=== PATIENT | female | born 1980 | race Caucasian/White ===

== ENCOUNTER → 2021-11-08 02:15 | Outpatient (CLI) | payer OTHER, SELFPAY ==
[2021-11-08 20:34] LABS: SARS-CoV-2 RNA PCR Negative
== END ==
PROVIDERS: PCP Family Medicine; Visit Provider Family Medicine
DX: J02.9 Acute pharyngitis, unspecified (principal); Z20.822 Contact with and (suspected) exposure to COVID-19
CPT/HCPCS: C9803; U0003; U0005

== ENCOUNTER → 2021-11-15 02:55 | Outpatient (CLI) | payer OTHER, SELFPAY ==
[2021-11-15 20:55] LABS: SARS-CoV-2 RNA PCR Positive
== END ==
PROVIDERS: PCP Family Medicine; Visit Provider Family Medicine
DX: U07.1 COVID-19 (principal)
CPT/HCPCS: C9803; U0003; U0005

== ENCOUNTER 2023-07-19 09:52 | Outpatient (CLI) | payer OTHER, SELFPAY ==
[2023-07-19 10:11] LABS: Basophils Absolute Auto 0.1 K/mm3 (0.0-0.1); Basophils Percent Auto 0.8 % (0.2-1.2); Eosinophils Absolute Auto 0.4 K/mm3 (0-0.3); Eosinophils Percent Auto 6.4 % (0-4.4); Hematocrit 42.4 % (37.0-47.0); Immature Granulocyte Absolute 0.01 K/mm3 (0.00-0.031); Immature Granulocyte Percent A 0.2 % (0-0.5); Lymphocytes Absolute Auto 1.97 K/mm3 (0.9-3.2); Lymphocytes Percent Auto 32.1 % (18.3-44.2); Mean Corpuscular Hemoglobin 29.4 pg (26-34); Mean Corpuscular Volume 89.1 fl (80-100); Mean Platelet Volume 10.3 fl (7.4-10.4); Monocytes Absolute Auto 0.4 K/mm3 (0.1-0.6); Monocytes Percent Auto 6.9 % (2.6-8.5); Neutrophils Absolute Auto 3.3 K/mm3 (1.3-6.7); Neutrophils Percent Auto 53.6 % (45.5-73.1); Platelet Count Result 244 k/mm3 (150-375); Red Blood Count 4.76 M/mm3 (4.2-5.4); Red Cell Distribution Width 12.2 % (11.5-14.5); White Blood Count 6.1 K/mm3 (4.5-10.0)
== END 2023-07-19 09:53 | disposition home or self-care (01) ==
LOC: ANHLAB 09:54
PROVIDERS: PCP Family Medicine; Visit Provider Anesthesiology
DX: D25.9 Leiomyoma of uterus, unspecified (principal); Z01.818 Encounter for other preprocedural examination
CPT/HCPCS: 36415; 85025; 86850; 86900; 86901

== ENCOUNTER 2023-07-25 00:42 | Day surgery (SDC) | payer OTHER, SELFPAY ==
[2023-07-18 14:30] VITALS: BMI 31.4
--- NOTE | 2023-07-18 14:53 | PC.NURSE ---
Report to the Outpatient Waiting Room, entrance under the green pavilion located off [facility], at time _0600___on date _07/25/23__. Planned Procedure Time: _0730__. Time changes happen often and if your time is changed the preop area will call you the afternoon before. - You and your visitor will be asked to self-screen and do not enter if you have any COVID symptoms. - A mask is optional within the hospital at this time. Patients may have clear liquids (water, carbonated beverages, clear teas, apple juice) until 3 hours prior to surgery with a maximum of 20 ounces. - No food from midnight until time of surgery. Take the following medications with a SIP of water the morning of surgery: __NONE DO NOT STOP ANY OF YOUR OTHER PRESCRIPTION MEDICATIONS PRIOR TO SURGERY ?EXCEPT THE FOLLOWING Medications to discontinue per physician NONE Date to take last dose____NONE Please no make-up, nail [place], hairspray, perfume, deodorant, or body powder the day of surgery. No jewelry (including any body piercings) or valuables the day of surgery, leave them at home. Please take a shower or bath the night before, or the morning of, surgery with an antibacterial soap. Wear comfortable, loose fitting clothing. Children are encouraged to wear pajamas. - Jewelry must be removed prior to entering the operating room. Rings and piercings that are not removed may be cut off. - The hospital will not accept responsibility for valuables. - Please leave all valuables, including medications, at home the day of surgery. If you are going home after surgery, a licensed hyster driver must drive you home. - NO public transportation without another adult if you receive anesthesia. - We recommend that an adult stay with you for 24 hours following discharge. - We also recommend that you do not drive, make important decision, drink alcoholic beverages, or take any drugs that were not prescribed by your health care provider for at least 24 hours after your discharge time. Follow any additional instructions given to you from your surgeon. If you or anyone in your household have experienced Covid symptoms in the past week, please notify your surgeon or the nurse liaison at the phone number below for possible testing. Telephone instructions given to __JOSE__and asked if any additional questions and then verbalized understanding. Patient advised to call surgeon office or pre surgery nurse liaison [phone] if any additional questions.
--- NOTE | 2023-07-22 16:15 | PM.IMHP ---
H&P: HPI History of Present Illness Date/Time: 07/22/23 16:15 Chief Complaint: Pelvic pain/uterine fibroid/vaginal bleeding Narrative: 42-year-old female was delivered from the uterine fibroid robotic hysterectomy bilateral salpingectomy secondary to failed ablation pelvic pain enlarged uterus and continued bleeding. Risks and benefits of this procedure reviewed including not exclusive of , aspiration pneumonia, bleeding, transfusion, perforation injury to bowel, bladder, ureters, or other internal organs with need for laparotomy. She received the ACO[employer] handout entitled hysterectomy as well as the Rafi handout. She had all questions answered to her satisfaction. She asked to proceed [facility] Family History Family History Father Cerebrovascular accident Hypertension Malignant neoplasm of prostate Mother Hypertension Pituitary tumor Grandparent Acute myocardial infarction Cervical cancer Social History Social History Smoking packs per day: 0.75 Smoking cigarettes per day: 15.0 Years smoked: 20 Smoking pack-years: 15.00 Smoking status: Current some day smoker Tobacco type: cigarettes and e-cigarettes/vaping Alcohol intake: current Drinks per week: 2 Substance use: never Substance use type: does not use Lack of Transportation: No Lack of Food: Never True Current Housing: I Have Housing Concerned About Future Housing: No Difficulty Paying Gas/Electric Bills: No Difficulty Paying for Meds: No Currently Unemployed: No Education: Associate Degree Difficulty w/ Childcare or Family Care: No Living arrangements: with family Spiritual care concerns: No Meds Home Medications and Allergies Home Medications Medication Instructions Recorded Confirmed Type No Home Medications 07/18/23 07/18/23 History Allergies Allergy/AdvReac Type Severity Reaction Status Date / Time amoxicillin AdvReac Yeast Verified 07/18/23 15:09 Infection Exam Const: General: cooperative, healthy appearing and comfortable Orientation/consciousness: oriented to person, oriented to place and oriented to time HENMT: Head: normal to inspection Resp: Effort & Inspection: normal respiratory effort Cardio: Rate: regular rate Rhythm: regular rhythm Heart sounds: S1 normal heart sound present and S2 normal heart sound present GI: Inspection: normal to inspection : External Female Exam: normal external appearance Speculum Exam - Vagina: normal appearance of the vagina Speculum Exam - Cervix: normal appearance of the cervix Bimanual exam- vagina & uterus: enlarged Bimanual Exam- Adnexa, other: normal adnexae Assessment and Plan Assessment and plan (1) Enlarged uterus: Code(s): N85.2 - Hypertrophy of uterus Status: Acute (2) Pelvic pain: Code(s): R10.2 - Pelvic and perineal pain Status: Acute (3) Excessive vaginal bleeding: Code(s): N93.9 - Abnormal uterine and vaginal bleeding, unspecified Status: Acute Plan Robotic total vaginal hysterectomy and bilateral salpingectomy
[2023-07-25] VITALS (12 sets, daily range): BP systolic 106–166; BP diastolic 77–114; PULSE 54–100; RESP 12–18; TEMP 36.2–37; O2SAT 93–100
--- NOTE | 2023-07-25 06:47 | WPDHPUPDATE1 ---
History and Physical Update Update Date/Time: 07/25/23 06:47 History and Physical has been reviewed, including an updated exam of the patient. There are NO changes in the patient's condition. Risks, benefits, and alternatives have been discussed and questions answered. Patient agrees to proceed with procedure.
--- NOTE | 2023-07-25 06:58 | WPDHPUPDATE1 ---
History and Physical Update Update Date/Time: 07/25/23 06:58 History and Physical has been reviewed, including an updated exam of the patient. There are NO changes in the patient's condition. Risks, benefits, and alternatives have been discussed and questions answered. Patient agrees to proceed with procedure. patient did not have ablation
[2023-07-25] MEDS: ACETAMINOPHEN 500 MG TABLET 1000 MG PO (07:10)
[2023-07-25] MEDS: KETOROLAC 15 MG/ML VIAL (*BKC) IV PUSH (07:10)
[2023-07-25] MEDS: LACTATED RINGERS 1,000 ML 30 ML IV CONT ×2 (07:10→09:39)
[2023-07-25] MEDS: ceFAZolin 2 GM/D5W 50 ML 2 GM/50 ML BAG IVPB (07:26)
[2023-07-25] MEDS: SCOPOLAMINE 1.5 MG PATCH TRANSDERM (07:26)
--- NOTE | 2023-07-25 09:20 | P.OP_ITS ---
Procedure Note - Detailed Date of Procedure 07/25/23 Pre-op Diagnosis heavy bleeding, fibroids Post-op Diagnosis Same Procedure Performed Robotic total vaginal hysterectomy and bilateral salpingectomy Surgeon Alfredo Chaudhry MD Anesthesia General Indications this 42-year-old female with markedly enlarged cyst fibroids Findings normal-appearing ovaries and tubes markedly irregular consult and uterus 527g Description of Procedure patient was prepped draped in the normal sterile fashion placed in the dorsal lithotomy position. Under excellent general trach anesthesia weighted speculum placed posterior fornix vagina. Anterior lip of the cervix grasped with single- tooth tenaculum. Uterus sounded to 10cm. Serial dilatation with fragmented dilators performed followed by passes then under the 10 KENIA and the 3. Cold cup. Next the 16 [place] catheter was placed in the bladder and bladder drained of clear urine. The weighted speculum and single-tooth removed and the gloves were changed. A supraumbilical incision made the Veress needle passed in the. Abdomen filled with CO2 gas to 15mm Hg. The 8mm trocar advanced in the abdomen. Downside visualized no injury seen. Patient placed in Trendelenburg 20? right left lateral quadrant incision made 8mm trocars were then placed in each lower quadrant. Right upper quadrant incision made the 8mm trocar advanced under direct visualization injury attention was turned to the counseling department chair. The left round ligament grasped burned and cut. Anterior bladder flap was dissecting the peritoneum and reflecting the bladder caudally cervix uterus the opposite round ligament was clamped, burned, cut. The left fallopian tube was then sharply dissected away from the ovarian complex and left attached to the uterine complex this was repeated on the contralateral side remove the right tube. Uterus was markedly irregular with a large calcified fibroid uterus. The left utero-ovarian ligament was skeletonized clamping burning cutting and hugging uterine fibroid and cervix to until reaching the round ligament on the left. In like fashion the ovary on the right was conserved by clamping burning and cutting the utero-ovarian ligament ramus to the previously cut ligament. The cardinal broad ligaments were skeletonized clamping burning cutting ring is down the lateral edge of the uterus and cervix until the uterine vessels could be seen on left these were large and very tortuous there were individually clamped, burned, cut. In like fashion the cardinal broad ligaments on the right were serially skeletonized clamping burning cutting until the vessels could be seen on right these were read skeletonized clamping burning and cutting. Hemostasis was noted and a colpotomy incision made. There was a difficult part in removing this large fibroid uterus. It was cut piecemeal the uterus was noted to be markedly adherent with the fibroids and marked amount of calcification was noted. It was brought out in 4 pieces. Irrigation undertaken to clear. Blood loss estimated 25cc. The vagina closed with continuous running 0V lock from lateral edge to lateral edge back to the midline. Irrigation subcutaneous layer 1 last time and the robot undocked the gas removed from the abdomen incisions closed with 4 Monocryl and glue the patient went to recovery in satisfactory condition. All sponge, needle, instrument counts were correct. There were no immediate complications Estimated Blood Loss 25 Drains No Packing No Pathology Yes Complications No immediate complications Condition Stable Disposition PACU
[2023-07-25] MEDS: fentaNYL CITRATE INJ (*CRX) 100 MCG/2 ML VIAL 25 MCG IV PUSH ×4 (10:05→10:40)
[2023-07-25] MEDS: ONDANSETRON INJ 4 MG/2 ML VIAL IV PUSH (10:12)
[2023-07-25] MEDS: diphenhydrAMINE HCl INJ 50 MG/ML VIAL 25 MG IV PUSH (11:27)
--- NOTE | 2023-07-25 11:32 | PM.DS ---
DS: Admitting Diagnosis Discharge Date Admitting Diagnosis Pelvic pain/symptomatic uterine fibroids DS: Discharge Diagnosis Discharge Diagnosis (1) Excessive vaginal bleeding: Code(s): N93.9 - Abnormal uterine and vaginal bleeding, unspecified Status: Acute (2) Pelvic pain: Code(s): R10.2 - Pelvic and perineal pain Status: Acute (3) Enlarged uterus: Code(s): N85.2 - Hypertrophy of uterus Status: Acute DS: Summary Hospital Course Reason for hospitalization: Patient was admitted for robotic hysterectomy and bilateral salpingectomy on 07/25/2023. Hospital Course: Patient was admitted for robotic total vaginal hysterectomy bilateral salpingectomy on 07/25/2023. Her hospital course unremarkable. She remained afebrile. She was up, voiding without difficulty, ambulating, eating regular diet. Time Spent with Patient Time attestation: Total time spent providing and/or coordinating discharge services: Exam Const: General: cooperative, healthy appearing and comfortable Nutritional Appearance: average body habitus Orientation/consciousness: oriented to person, oriented to place and oriented to time HENMT: Head: normal to inspection Resp: Effort & Inspection: normal respiratory effort Cardio: Rate: regular rate Rhythm: regular rhythm Heart sounds: S1 normal heart sound present and S2 normal heart sound present GI: Inspection: normal to inspection and incision (Clean dry and intact) DS: Data Data Completed and Pending Pending studies at discharge: Pending at discharge 07/25/23 08:40 Surgical [PTH] Routine Discharge Plan Discharge Patient Disposition: Home, Self-Care Discharge Instructions: Remove the Scopolamine patch that was placed behind your left ear in 72 hours or less. Wash your hands after touching. Stand Alone Forms: General Discharge Instructions Follow-up/Referrals: Alfredo Larios MD [Physician] - Discharge Medications: New hydrocodone-acetaminophen 5-325 mg tablet 1 tablet PO Q4H PRN (Reason: pain) Qty: 30 0RF
--- NOTE | 2023-07-25 11:40 | PC.NURSE ---
Patient transferred to post room #289 via (stretcher ). Support person present. Oriented to unit, room, information board, rooming in, admission packet and security measures. Patient verbalizes understanding.
[2023-07-25] MEDS: DEXTROSE 5%/LACTATED RINGERS 1,000 ML 125 ML IV CONT (11:48)
[2023-07-25] MEDS: HYDROcodone/acetaminophen (*CRX) 10-325 MG TABLET 1 TAB PO ×4 (12:04→22:17)
[2023-07-25] MEDS: KETOROLAC 30 MG/ML VIAL (*BKC) IV PUSH ×2 (12:05→18:20)
[2023-07-25] MEDS: SIMETHICONE 80 MG TAB.CHEW PO ×3 (14:32→22:17)
[2023-07-25] MEDS: DOCUSATE SODIUM 100 MG CAPSULE PO (17:55)
[2023-07-25] MEDS: IBUPROFEN 600 MG TABLET PO (23:44)
[2023-07-26] MEDS: HYDROcodone/acetaminophen (*CRX) 10-325 MG TABLET 1 TAB PO ×3 (02:02→10:01)
[2023-07-26] MEDS: SIMETHICONE 80 MG TAB.CHEW PO ×2 (02:03→09:49)
[2023-07-26 04:00] VITALS: BP 101/54; PULSE 56; RESP 16; TEMP 36.8
[2023-07-26] MEDS: IBUPROFEN 600 MG TABLET PO (05:13)
[2023-07-26 05:24] LABS: Basophils Absolute Auto 0.1 K/mm3 (0.0-0.1); Basophils Percent Auto 0.3 % (0.2-1.2); Eosinophils Absolute Auto 0.1 K/mm3 (0-0.3); Eosinophils Percent Auto 0.5 % (0-4.4); Hemoglobin 11.9 g/dL (12.0-15.0); Immature Granulocyte Absolute 0.04 K/mm3 (0.00-0.031); Immature Granulocyte Percent A 0.3 % (0-0.5); Lymphocytes Absolute Auto 2.09 K/mm3 (0.9-3.2); Lymphocytes Percent Auto 14.6 % (18.3-44.2); Mean Corpuscular HGB Conc 33.1 g/dl (32-36); Mean Corpuscular Volume 90.7 fl (80-100); Mean Platelet Volume 10.6 fl (7.4-10.4); Monocytes Absolute Auto 0.7 K/mm3 (0.1-0.6); Monocytes Percent Auto 4.9 % (2.6-8.5); Neutrophils Absolute Auto 11.4 K/mm3 (1.3-6.7); Neutrophils Percent Auto 79.4 % (45.5-73.1); Platelet Count Result 235 k/mm3 (150-375); Red Blood Count 3.97 M/mm3 (4.2-5.4); Red Cell Distribution Width 12.7 % (11.5-14.5); White Blood Count 14.3 K/mm3 (4.5-10.0)
--- NOTE | 2023-07-26 07:47 | WPDANESPN ---
Anes - Prog Note Post-Op Date/Time: 07/26/23 07:47 Cardiovascular status: normal Respiratory status: normal Airway patency: baseline Mental status: baseline Post-Op hydration status: normal Vital Signs: Last Vital Signs Temp 36.8 C 07/26/23 04:00 Pulse 56 L 07/26/23 04:00 Resp 16 07/26/23 04:00 BP 101/54 L 07/26/23 04:00 Pulse Ox 100 07/25/23 14:48 O2 Del Method Room Air 07/25/23 19:21 O2 Flow Rate 6 07/25/23 10:25 Pain Score (VAS): 0 I/O: Intake & Output 07/25/23 07/25/23 07/26/23 15:59 23:59 07:59 Intake Total 500 1240 1740 Output Total 420 2000 1100 Balance 80 -760 640 Laboratory Tests 07/26/23 05:07 07/26/23 05:07 WBC 14.3 H RBC 3.97 L Hgb 11.9 L Hct 36.0 L MCV 90.7 MCH 30.0 MCHC 33.1 RDW 12.7 Plt Count 235 MPV 10.6 H Immature Gran % (Auto) 0.3 Neut % (Auto) 79.4 H Lymph % (Auto) 14.6 L [place] % (Auto) 4.9 Eos % (Auto) 0.5 Baso % (Auto) 0.3 Lymph # (Auto) 2.09 [place] # (Auto) 0.7 H Eos # (Auto) 0.1 Baso # (Auto) 0.1 Abs Immat Gran (auto) 0.04 H Absolute Neuts (auto) 11.4 H Absolute Nucleated RBC 0.0 Nucleated RBC % 0.0 Post-procedural complaints: none Patient Feedback: Patient satisfied with anesthetic care.
--- NOTE | 2023-07-26 09:26 | PM.GYNPNOP ---
CLINICAL DOCUMENTATION NURSE - A/P Assessment and plan (1) Excessive vaginal bleeding: Code(s): N93.9 - Abnormal uterine and vaginal bleeding, unspecified Status: Acute Assessment and Plan: A: POD#1, doing well. P: Home to f/u 2 weeks. (2) Pelvic pain: Code(s): R10.2 - Pelvic and perineal pain Status: Acute (3) Enlarged uterus: Code(s): N85.2 - Hypertrophy of uterus Status: Acute Postoperative Procedures: Procedures Operation Date: 07/25/23 07:30 Actual Procedure Side Surgeon p Robotic Assisted Total Vaginal Hysterectomy with Bilateral Salpingectomy Bilateral Alfredo Chaudhry MD Time Spent With Patient Time: Total time spent is greater than 50% in coordination of care (as documented) at patient's floor/unit and/or counseling patient: Time with patient: less than 15 minutes CLINICAL DOCUMENTATION NURSE- PN:Subj Post-Op Subjective Date/time seen: 07/26/23 09:26 Interval history: Pain OK. Tolerating diet. Voiding. Would like to go home. Exam Narrative: AVSS I/O OK ABD soft, nontender. Incisions c/d/i. EXT nontender CLINICAL DOCUMENTATION NURSE - PN: Obj Data Vital Signs Vital Signs: Vital Signs - 24 hr 07/25/23 09:39 07/25/23 09:55 07/25/23 10:10 Temperature 36.2 C L Pulse Rate 74 71 64 Respiratory Rate 13 14 13 Blood Pressure 106/77 139/107 H 156/108 H Pulse Oximetry 96 99 100 Oxygen Delivery Simple Face Mask Simple Face Mask Simple Face Mask Oxygen Flow Rate 6 6 6 07/25/23 10:25 07/25/23 10:40 07/25/23 10:55 Temperature Pulse Rate 59 L 59 L 59 L Respiratory Rate 12 12 13 Blood Pressure 166/112 H 154/114 H 156/98 H Pulse Oximetry 100 98 94 Oxygen Delivery Simple Face Mask Room Air Room Air Oxygen Flow Rate 6 07/25/23 11:10 07/25/23 11:25 07/25/23 11:50 Temperature 36.3 C L Pulse Rate 54 L 61 100 Respiratory Rate 13 14 16 Blood Pressure 166/112 H 154/107 H 156/104 H Pulse Oximetry 100 93 96 Oxygen Delivery Room Air Room Air Oxygen Flow Rate 07/25/23 12:00 07/25/23 14:48 07/25/23 19:21 Temperature Pulse Rate 100 Respiratory Rate 16 Blood Pressure 140/98 H Pulse Oximetry 100 Oxygen Delivery Room Air Room Air Oxygen Flow Rate 07/25/23 16:00 07/25/23 20:00 07/26/23 04:00 Temperature 37.0 C 36.8 C Pulse Rate 56 L 56 L Respiratory Rate 18 16 Blood Pressure 110/77 101/54 L Pulse Oximetry Oxygen Delivery Room Air Oxygen Flow Rate Intake/Output Intake/Output: Intake & Output 07/23/23 07/24/23 07/25/23 07/26/23 23:59 23:59 23:59 23:59 Intake Total 1790 1740 Output Total 2420 1100 Balance -630 640 Meds/Results Medications: Active Medications Generic Name Dose Route Start Last Admin Trade Name Freq PRN Reason Stop Dose Admin Hydrocodone Bitart/Acetaminophen 1 tab 07/25/23 11:38 Hydrocodone/Acetaminophen (*Crx) 5-325 Mg Tablet PO Q3H PRN Pain Rated 5 or Less Hydrocodone Bitart/Acetaminophen 1 tab 07/25/23 11:38 07/26/23 05:15 Hydrocodone/Acetaminophen (*Crx) 10-325 Mg Tablet PO 1 tab Q3H PRN Administration Pain Rated 6 or Greater Docusate Sodium 100 mg 07/25/23 17:00 07/25/23 17:55 Docusate Sodium 100 Mg Capsule PO 100 mg BID RADHA Administration Enoxaparin Sodium 40 mg 07/26/23 09:00 Enoxaparin 40 Mg/0.4 Ml Syringe SUB-Q DAILY RADHA Ibuprofen 600 mg 07/25/23 11:38 07/26/23 05:13 Ibuprofen 600 Mg Tablet PO 600 mg Q6H PRN Administration Cramping Ketorolac Tromethamine 30 mg 07/25/23 11:38 07/25/23 18:20 Ketorolac 30 Mg/Ml Vial (*Bkc) IV PUSH 07/30/23 11:37 30 mg Q6H PRN Administration Pain Rated 4-6 Naloxone HCl 0.1 mg 07/25/23 11:38 Naloxone Hcl 0.4 Mg/Ml Vial IV PUSH Q2M PRN Respiratory rate less than 10 Ondansetron HCl 4 mg 07/25/23 11:38 Ondansetron Inj 4 Mg/2 Ml Vial IV PUSH Q6H PRN Nausea And Vomiting Simethicone 80 mg 07/25/23 11:38 07/26/23 02:03 Simethicone 80 Mg Tab.Ch
--- NOTE | 2023-07-26 09:27 | PM.DS ---
DS: Admitting Diagnosis Discharge Date 07/26/23 Admitting Diagnosis Vaginal bleeding, pelvic pain, enlarged uterus DS: Discharge Diagnosis Discharge Diagnosis (1) Excessive vaginal bleeding: Code(s): N93.9 - Abnormal uterine and vaginal bleeding, unspecified Status: Acute (2) Pelvic pain: Code(s): R10.2 - Pelvic and perineal pain Status: Acute (3) Enlarged uterus: Code(s): N85.2 - Hypertrophy of uterus Status: Acute DS: Summary Hospital Course Hospital Course: Admitted on the date of scheduled surgery. Did well postop and was able to go home on POD1. Time Spent with Patient Time attestation: Total time spent providing and/or coordinating discharge services: DS: Data Data Completed and Pending Pending studies at discharge: Pending at discharge 07/25/23 08:40 Surgical [PTH] Routine Labs on day of discharge: Labs from last 24 hours 07/26/23 05:07 WBC 14.3 H RBC 3.97 L Hgb 11.9 L Hct 36.0 L MCV 90.7 MCH 30.0 MCHC 33.1 RDW 12.7 Plt Count 235 MPV 10.6 H Immature Gran % (Auto) 0.3 Neut % (Auto) 79.4 H Lymph % (Auto) 14.6 L [place] % (Auto) 4.9 Eos % (Auto) 0.5 Baso % (Auto) 0.3 Lymph # (Auto) 2.09 [place] # (Auto) 0.7 H Eos # (Auto) 0.1 Baso # (Auto) 0.1 Abs Immat Gran (auto) 0.04 H Absolute Neuts (auto) 11.4 H Absolute Nucleated RBC 0.0 Nucleated RBC % 0.0 Discharge Plan Discharge Patient Disposition: Home, Self-Care Discharge Instructions: Remove the Scopolamine patch that was placed behind your left ear in 72 hours or less. Wash your hands after touching. Stand Alone Forms: General Discharge Instructions Follow-up/Referrals: Alfredo Larios MD [Physician] - 2 Weeks Discharge Medications: New hydrocodone-acetaminophen 5-325 mg tablet 1 tablet PO Q4H PRN (Reason: pain) Qty: 30 0RF
[2023-07-26] MEDS: DOCUSATE SODIUM 100 MG CAPSULE PO (09:49)
[2023-07-26] MEDS: ENOXAPARIN 40 MG/0.4 ML SYRINGE SUB-Q (09:50)
[2023-07-26 09:52] VITALS: BP 94/65; PULSE 59; RESP 16; TEMP 36.7; O2SAT 94
== END 2023-07-26 13:10 | disposition home or self-care (01) ==
LOC: ANHSURGERY 07:26 → ANHOB2 11:44
PROVIDERS: PCP Family Medicine; Visit Provider Obstetrics & Gynecology
PROC: (CPT 58554; principal; 2023-07-25 07:30)
DX: D25.1 Intramural leiomyoma of uterus (principal); N72 Inflammatory disease of cervix uteri; F17.210 Nicotine dependence, cigarettes, uncomplicated; F17.290 Nicotine dependence, other tobacco product, uncomplicated; Z79.891 Long term (current) use of opiate analgesic; Z79.4 Long term (current) use of insulin
CPT/HCPCS: 58554; S2900; 36415; 85025; 86850; 86900; 86901; 88307; 99199; A9270; J0690; J1100; J1170; J1200; J1650; J1885; J2250; J2405; J2704; J3010; J7030; J7120; J7121

== ENCOUNTER → 2023-08-22 09:14 | Outpatient (CLI) | payer OTHER, SELFPAY ==
--- NOTE | ~2023-08-22 | MMUS_ITS ---
EXAMINATION: MM diagnostic mirna BI w emanuel, US breast BI limited HISTORY: Abnormal outside 07/22/2023 bilateral screening mammogram TECHNIQUE: Additional 3-D tomosynthesis images of both breasts were performed and synthetic 2-D image s were generated. Magnification views of right breast. CAD analysis was submitted and interpreted. Hi gh resolution bilateral subareolar and upper outer and lower-outer quadrant breast ultrasound was per formed. COMPARISON: 07/22/2023 bilateral screening mammogram ([facility], [facility], [place] [address]) Breast parenchymal composition: There is heterogeneously dense breast tissue, which may obscure small masses. FINDINGS: MAMMOGRAPHIC FINDINGS: Numerous grouped pleomorphic microcalcifications are noted in the lower outer quadrant of the right b reast. These are suspicious. Stereotactic biopsy is recommended. There is asymmetric heterogeneously dense stroma in the outer and subareolar breasts bilaterally but no definite mass or suspicious architectural distortion is evident. The heterogeneously dense stroma may obscure masses. Bilateral upper outer and lower-outer quadrants and subareolar breast ultrasound examination was performed. ULTRASOUND: Right breast: 12:00 6 cm from nipple: Parallel circumscribed 1.6 x 2.1 x 3.1 mm largely sonolucent lesion with thin linear midline density, likely a small septated cyst or other benign process. There is no posterior shadowing. 9:00 4 cm from nipple: Parallel circumscribed hypoechoic 2.9 x 6 x 7.2 mm lesion with some calcificat ions. No internal vascularity is demonstrated on color flow imaging. There is irregular soft tissue mass with multiple finger-like projections and calcifications extendin g from the subareolar region. Left breast: 2:00 8 cm from nipple: 2 mm cyst 2:00 8 cm from nipple: Parallel circumscribed 2 x 3.1 x 2.1 mm hypoechoic lesion without suspicious s hadowing, benign in appearance 3:00 4 cm from nipple: 2 x 2.5 x 2.8 mm circumscribed hypoechoic lesion without internal vascularity or posterior shadowing, likely benign IMPRESSION: 1. Multiple grouped microcalcifications in the lower outer quadrant of the right breast 2. Stereotactic biopsy of the lower quadrant right breast microcalcifications is recommended. BI-RADS category 4, suspicious findings. Reviewed, dictated and finalized at location A. IMPRESSION: 1. Multiple grouped microcalcifications in the lower outer quadrant of the righ t breast 2. Stereotactic biopsy of the lower quadrant right breast microcalcifications i s recommended. BI-RADS category 4, suspicious findings.
== END ==
PROVIDERS: PCP Family Medicine; Visit Provider Family Medicine
DX: R92.8 Other abnormal and inconclusive findings on diagnostic imaging of breast (principal)
CPT/HCPCS: 76642; 77062; 77066; G0279

== ENCOUNTER 2023-08-27 12:54 | Outpatient (CLI) | payer OTHER, SELFPAY ==
--- NOTE | ~2023-08-27 | MM_ITS ---
MM stereotactic bx RT, MM post biopsy diagnostic RT, MM stereotactic specimen RT EXAMINATION: MM stereotactic bx RT, MM post biopsy diagnostic RT, MM stereotactic specimen RT DATE: Marvin Kaur M.D. INDICATION: Abnormal calcifications in the right breast. Stereotactic core biopsy is requested evalu ate for malignancy.] TECHNIQUE AND FINDINGS: The risks and potential benefits of the procedure were discussed with the patient and written informe d consent was obtained. The patient was placed in the prone position clustered at the table with the right breast in craniocaudal compression, and the area of interest was localized and targeted utiliz ing digital imaging with stereotaxis. After sterile preparation of the skin, 1% lidocaine was utilized for local anesthesia at the skin pun cture site and 1% lidocaine with epinephrine was utilized for deeper local anesthesia/is about the bi opsy site. A 9G Rebit vacuum assisted biopsy needle was advanced to the level of the calcification o f interest from a cephalad approach utilizing stereotactic guidance and a total of 6 tissue core biop sies were obtained. A specimen radiograph demonstrates that the calcifications of interest are included within the tissue cores. A tissue marker clip was then placed at the biopsy site. The needle was removed and hemosta sis was achieved. The patient tolerated the procedure well and there is no evidence of significant i mmediate complication. The patient was given verbal as well as written postprocedural instructions p rior to discharge from the department. Tissue cores were submitted to surgical pathology for histolo gic analysis. A 2-view right unilateral digital mammogram was obtained post procedure and this demonstrates that th e tissue marker clip is in expected position.] IMPRESSION: 1. Successful stereotactic biopsy of calcifications in the lower outer quadrant of the right breast, followed by tissue marker clip placement. Please refer to pathology report for histologic analysis. Reviewed, dictated and finalized at location A. IMPRESSION: 1. Successful stereotactic biopsy of calcifications in the lower outer quadran t of the right breast, followed by tissue marker clip placement. Please refer to pathology report for histologic analysis. IMPRESSION: 1. Successful stereotactic biopsy of calcifications in the lower outer quadran t of the right breast, followed by tissue marker clip placement. Please refer to pathology report for histologic analysis.
== END 2023-08-27 12:55 | disposition home or self-care (01) ==
PROVIDERS: PCP Family Medicine; Visit Provider Family Medicine
DX: C50.511 Malignant neoplasm of lower-outer quadrant of right female breast (principal); Z17.0 Estrogen receptor positive status [ER+]
CPT/HCPCS: 19081; 77065; 88305; 88360; 88365

== ENCOUNTER 2024-07-13 07:57 | Outpatient (CLI) | payer OTHER, SELFPAY ==
--- NOTE | 2024-07-13 08:10 | ECG_ITS ---
Test Date: 2024-07-13 08:36:25 Measurements Intervals [place] Rate: 67 P: 62 MT: 177 QRS: -43 QRSD: 102 T: 20 QT: 396 QTc: 421 Interpretive Statements SINUS RHYTHM WITH OCCASIONAL SUPRAVENTRICULAR PREMATURE COMPLEXES LEFT AXIS DEVIATION POSSIBLE LEFT ATRIAL ENLARGEMENT INCOMPLETE RIGHT BUNDLE BRANCH BLOCK CANNOT R/O SEPTAL INFARCT, AGE INDETERMINATE BASELINE ARTIFACT- I, II, III, AVR, AVL, AVF, V2-V6 ABNORMAL ECG No previous ECG available for comparison Electronically Signed On 07-13-2024 10:38:57 CDT by Lexa Allen D.O.
== END 2024-07-13 07:58 | disposition home or self-care (01) ==
PROVIDERS: PCP Family Medicine; Visit Provider Obstetrics & Gynecology
DX: Z01.818 Encounter for other preprocedural examination (principal); I49.3 Ventricular premature depolarization; I45.10 Unspecified right bundle-branch block; C50.919 Malignant neoplasm of unspecified site of unspecified female breast; Z72.0 Tobacco use
CPT/HCPCS: 36415; 86850; 86900; 86901; 93005

== ENCOUNTER 2024-07-16 00:39 | Day surgery (SDC) | payer OTHER, SELFPAY ==
[2024-07-09 13:49] VITALS: BMI 26.4
--- NOTE | 2024-07-09 14:07 | SUR.PREOP ---
Report to the Outpatient Waiting Room, entrance under the green pavilion located off [facility], at time 6:30a.m. on date 07/16/2024. Planned Procedure Time: 8:30a.m.? Time changes happen often and if your time is changed the preop area will call you the afternoon before. - You and your visitor will be asked to self-screen and do not enter if you have any COVID symptoms. Please call surgeon if you need to reschedule. - A mask is optional within the hospital at this time. Patients may have clear liquids (water, carbonated beverages, clear teas, apple juice) until 3 hours prior to surgery with a maximum of 20 ounces. - No food from midnight until time of surgery and no smoking - Infants may have breast milk until 4 hours before surgery, infant formula 6 hours prior to surgery. - Children will be allowed to drink immediately following surgery.? If applicable, please bring a bottle or sippy cup to assist with drinking. Juice, water, soda, and popsicles are readily available.? For infants on formula, please bring formula the day of surgery.? Pacifiers are allowed. Take only the following medications with a SIP of water on the morning of surgery: duloxetine DO NOT STOP ANY OF YOUR OTHER PRESCRIPTION MEDICATIONS PRIOR TO SURGERY EXCEPT THE FOLLOWING Medications to discontinue per physician Vitamins and supplements Date to take last dose 07/13/2023 Please no make-up, nail azeri, hairspray, perfume, deodorant, or body powder the day of surgery.? No jewelry (including any body piercings) or valuables the day of surgery, leave them at home.? Please take a shower or bath the night before, or the morning of, surgery with an antibacterial soap.? Wear comfortable, loose fitting clothing.? Children are encouraged to wear pajamas. - Jewelry must be removed prior to entering the operating room.? Rings and piercings that are not removed may be cut off. - The hospital will not accept responsibility for valuables.? - Please leave all valuables, including medications, at home the day of surgery. If you are going home after surgery, a licensed party bus driver must drive you home.? - NO public transportation without another adult if you receive anesthesia. - We recommend that an adult stay with you for 24 hours following discharge. - We also recommend that you do not drive, make important decision, drink alcoholic beverages, or take any drugs that were not prescribed by your health care provider for at least 24 hours after your discharge time. For Pediatric surgeries, we recommend two adults accompany the child home. Follow any additional instructions given to you from your surgeon. Telephone instructions given to Yeni Christian and asked if any additional questions and then verbalized understanding. Patient advised to call surgeon office or pre surgery nurse liaison [phone] if any additional questions.
--- NOTE | 2024-07-15 06:58 | PM.IMHP ---
H&P: HPI History of Present Illness Date/Time: 07/15/24 06:58 Chief Complaint: Breast cancer Narrative: 43-year-old female for laparoscopic bilateral salpingo oophorectomy secondary to history of breast cancer risks and benefits reviewed including but not exclusive , aspiration pneumonia, bleeding, transfusion, perforation injury to bowel, bladder, ureters, or other internal organs with the need for open laparotomy. She received the ACOG handout entitled laparoscopy. She had all questions answered. She asked to proceed PMFSH Past Medical History Medical History History of radiation therapy Surgical History Surgical History S/P vaginal hysterectomy Family History Family History Father Cerebrovascular accident Hypertension Malignant neoplasm of prostate Mother Hypertension Pituitary tumor Grandparent Acute myocardial infarction Cervical cancer Social History Social History Smoking packs per day: 1 Smoking cigarettes per day: 20.0 Years smoked: 20 Smoking pack-years: 20.00 Smoking status: Former smoker Tobacco type: e-cigarettes/vaping Alcohol intake: current Drinks per week: 2 Alcohol use details: Social Substance use: current Substance use type: marijuana Other substance usage details: takes edibles Last use: 07/08/2024 Lack of Transportation: No Lack of Food: Never True Current Housing: I Have Housing Concerned About Future Housing: No Difficulty Paying Gas/Electric Bills: No Difficulty Paying for Meds: No Currently Unemployed: No Education: Associate Degree Difficulty w/ Childcare or Family Care: No Living arrangements: with family Spiritual care concerns: No Meds Home Medications and Allergies Home Medications Medication Instructions Recorded Confirmed Type duloxetine 30 mg capsule,delayed 30 mg PO BID 06/24/24 07/09/24 History release (Cymbalta) fezolinetant 45 mg tablet (Veozah) 45 mg PO DAILY 06/24/24 07/09/24 History Claritin 10 mg BYMOUTH DAILY 07/09/24 07/09/24 History Tart Reyes Extract 1 tablet PO DAILY 07/09/24 07/09/24 History magnesium 100 mg BYMOUTH DAILY 07/09/24 07/09/24 History Allergies Allergy/AdvReac Type Severity Reaction Status Date / Time amoxicillin AdvReac Yeast Verified 07/09/24 13:41 Infection Exam Const: General: cooperative, healthy appearing and comfortable Nutritional Appearance: average body habitus Orientation/consciousness: oriented to person, oriented to place and oriented to time Resp: Effort & Inspection: normal respiratory effort Cardio: Rate: regular rate Rhythm: regular rhythm Heart sounds: S1 normal heart sound present and S2 normal heart sound present GI: Inspection: normal to inspection : External Female Exam: normal external appearance Speculum Exam - Vagina: normal appearance of the vagina Speculum Exam - Cervix: Cervix absent Bimanual exam- vagina & uterus: uterus absent Bimanual Exam- Adnexa, other: normal adnexae Assessment and Plan Assessment and plan (1) Breast cancer: Code(s): C50.919 - Malignant neoplasm of unspecified site of unspecified female breast Status: Acute Assessment and Plan: laparoscopic bilateral salpingo-oophorectomy
[2024-07-16] VITALS (11 sets, daily range): BP systolic 108–145; BP diastolic 74–108; PULSE 57–95; RESP 12–18; TEMP 36.3–37; O2SAT 95–100
[2024-07-16] MEDS: ACETAMINOPHEN 500 MG TABLET 1000 MG PO (06:35)
[2024-07-16] MEDS: LACTATED RINGERS 1,000 ML 30 ML IV CONT ×2 (06:40→08:18)
[2024-07-16] MEDS: KETOROLAC 15 MG/ML VIAL (*BKC) IV PUSH (06:42)
--- NOTE | 2024-07-16 07:04 | WPDHPUPDATE1 ---
History and Physical Update Update Date/Time: 07/16/24 07:04 History and Physical has been reviewed, including an updated exam of the patient. There are NO changes in the patient's condition. Risks, benefits, and alternatives have been discussed and questions answered. Patient agrees to proceed with procedure.
--- NOTE | 2024-07-16 07:21 | WPDANESEPPF ---
Anes - Initial Pre Proc Eval Procedure: Operation Date: 07/16/24 07:30 Proposed Procedures p Laparoscopic Bilateral Salpingo Oophorectomy - Alfredo Chaudhry MD Date/Time: 07/16/24 07:21 Surgeon: Alfredo Chaudhry MD Pre Op Diagnosis: pers hx breast CA Patient Data Age: 43 Gender: F Height: 1.68 m Weight: 75.05 kg Last Vital Signs Temp 97.4 F L 07/16/24 06:34 Pulse 65 07/16/24 06:34 Resp 16 07/16/24 06:34 BP 127/88 07/16/24 06:34 Pulse Ox 100 07/16/24 06:34 O2 Del Method Room Air 07/16/24 06:34 Allergies Allergy/AdvReac Type Severity Reaction Status Date / Time amoxicillin AdvReac Yeast Verified 07/09/24 13:41 Infection Home Medications Medication Instructions Recorded Confirmed Type duloxetine 30 mg capsule,delayed 30 mg PO BID 06/24/24 07/09/24 History release (Cymbalta) fezolinetant 45 mg tablet (Veozah) 45 mg PO DAILY 06/24/24 07/09/24 History Claritin 10 mg BYMOUTH DAILY 07/09/24 07/09/24 History Tart Reyes Extract 1 tablet PO DAILY 07/09/24 07/09/24 History magnesium 100 mg BYMOUTH DAILY 07/09/24 07/09/24 History hydrocodone 5 mg-acetaminophen 325 1 tablet PO Q4H PRN pain #20 tabs 07/16/24 Rx mg tablet Patient hx anesthesia problems: post op nausea/vomiting Family hx anesthesia problems: none Results Review: All pre-operative results and documents have been reviewed as part of the pre-operative evaluation. [facility] Past Medical History Medical History History of radiation therapy Surgical History Surgical History S/P vaginal hysterectomy Family History Family History Father Cerebrovascular accident Hypertension Malignant neoplasm of prostate Mother Hypertension Pituitary tumor Grandparent Acute myocardial infarction Cervical cancer Social History Social History Smoking packs per day: 1 Smoking cigarettes per day: 20.0 Years smoked: 20 Smoking pack-years: 20.00 Smoking status: Former smoker Tobacco type: e-cigarettes/vaping Alcohol intake: current Drinks per week: 2 Alcohol use details: Social Substance use: current Substance use type: marijuana Other substance usage details: takes edibles Last use: 07/08/2024 Lack of Transportation: No Lack of Food: Never True Current Housing: I Have Housing Concerned About Future Housing: No Difficulty Paying Gas/Electric Bills: No Difficulty Paying for Meds: No Currently Unemployed: No Education: Associate Degree Difficulty w/ Childcare or Family Care: No Living arrangements: with family Spiritual care concerns: No Anes - Eval Final PreProcedure Day of Procedure 07/16/24 07:21 Patient weight: normal Heart: regular rate and rhythm Lungs: clear to auscultation Airway: Mallampati scale class II Neurological: alert and oriented Last oral intake: >/= 8 hours ASA classification: III Emergent: no Anesthetic plan: proceed Anesthesia type and monitoring: general ETT and standard monitoring Results Review: All pre-operative results and documents have been reviewed as part of the pre-operative evaluation. Informed Consent: The patient's anesthetic plan and its attendant risks and benefits were discussed with the patient/family/POA. Questions were solicited and answers provided to the satisfaction of the patient/family/POA.
[2024-07-16] MEDS: SCOPOLAMINE 1 MG PATCH 1 PATCH TRANSDERM (07:35)
--- NOTE | 2024-07-16 08:11 | P.OP_ITS ---
Procedure Note - Detailed Date of Procedure 07/16/24 Pre-op Diagnosis pers hx breast CA Post-op Diagnosis Same Procedure Performed Laparoscopic bilateral oophorectomy Surgeon Alfredo Chaudhry MD Anesthesia General Indications 43-year-old female with estrogen dependent breast cancer admitted for laparoscopic bilateral oophorectomy Findings normal-appearing ovaries bilaterally. There is a fair amount of adhesions to the left adnexa. The uterus was surgically absent. The tubes were surgically absent Description of Procedure patient was prepped draped normal sterile fashion placed in dorsal lithotomy po sition. Under excellent general endotracheal anesthesia weighted speculum was placed in posterior fornix of vagina. This a sponge stick was placed in the vagina and the bladder emptied about 50cc of clear urine. The weighted speculum was removed and the gloves were changed. A supraumbilical incision made from the previous hysterectomy site the progressive layers of fascia. Veress needle passed in the abdomen abdomen filled with CO2 gas [id number]. The 5mm trocar advanced under direct visualization without the scope and no injury seen. Patient placed in Trendelenburg and right left lateral quadrant incisions were made from her previous hysterectomy incisions. The right fallopian tube and left fallopian was surgically absent as was the uterus. The a 10mm trocar site on the lower right was used to advance the LigaSure and the infundibulopelvic was clamped, burned, cut. This was stored in the cul-de-sac. There was a fair amount of adhesions on the left and from the colon to the adnexa and using sharp dissection with occasional cautery this was cleared into the infundibulum pelvic structure was able to be skeletonized. This was clamped, burned, cut. The O2 ovaries were placed in an Endo-Catch removed through the right lower quadrant. Irrigation undertaken to clear. Blood loss estimated 5cc. The gas removed from the abdomen and the trocars removed. The incisions closed with 4 Monocryl and glue. Patient was awake and went recovery in satisfactory condition. All sponge, needle, instrument counts were correct. There were no immediate complications Estimated Blood Loss 5 Drains No Packing No Pathology Yes Complications No immediate complications Condition Stable Disposition PACU
[2024-07-16] MEDS: fentaNYL CITRATE INJ (*CRX) 100 MCG/2 ML VIAL 25 MCG IV PUSH ×4 (08:46→09:40)
[2024-07-16] MEDS: oxyCODONE HCL (*CRX) 5 MG TAB IR PO (10:02)
== END 2024-07-16 10:55 | disposition home or self-care (01) ==
PROVIDERS: PCP Family Medicine; Visit Provider Obstetrics & Gynecology
PROC: (CPT 49320; principal; 2024-07-16 07:30)
DX: Z40.02 Encounter for prophylactic removal of ovary(s) (principal); Z85.3 Personal history of malignant neoplasm of breast; N73.6 Female pelvic peritoneal adhesions (postinfective); Z17.0 Estrogen receptor positive status [ER+]; Z92.3 Personal history of irradiation; Z87.891 Personal history of nicotine dependence; F12.90 Cannabis use, unspecified, uncomplicated
CPT/HCPCS: 58661; 36415; 86850; 86900; 86901; 88305; 93005; A9270; J0330; J1100; J1885; J2250; J2405; J3010; J7120

== ENCOUNTER 2024-08-04 15:43 | Outpatient (CLI) | payer OTHER, SELFPAY ==
--- NOTE | 2024-08-04 16:00 | ECG_ITS ---
Test Date: 2024-08-04 16:11:14 Measurements Intervals [place] Rate: 69 P: 49 RI: 176 QRS: -49 QRSD: 100 T: 30 QT: 391 QTc: 420 Interpretive Statements SINUS RHYTHM LEFT AXIS DEVIATION INCOMPLETE RIGHT BUNDLE BRANCH BLOCK BORDERLINE ECG Compared to ECG 07/13/2024 08:36:25 NO SIGNIFICANT CHANGE Electronically Signed On 08-05-2024 05:35:17 CDT by Lexa Allen D.O.
== END 2024-08-04 15:44 | disposition home or self-care (01) ==
LOC: ANHCARD 15:45
PROVIDERS: PCP Family Medicine; Visit Provider Nurse Practitioner Family
DX: R94.31 Abnormal electrocardiogram [ECG] [EKG] (principal); I45.10 Unspecified right bundle-branch block
CPT/HCPCS: 93005

== ENCOUNTER 2024-08-31 09:51 | Outpatient (CLI) | payer OTHER, SELFPAY ==
--- NOTE | 2024-08-31 10:23 | ECHO_ITS ---
Patient Info Name: Yeni Christian Age: 43 years : 1980 Gender: Female Ht: 66 in Wt: 168 lbs BSA: 1.90 m2 HR: 66 bpm BP: 135 / 96 mmHg Heart Rhythm: Sinus Rhythm Technical Quality: Good Exam Date: 08/31/2024 10:32 AM Exam Location: Echo Lab Patient Status: Outpatient Admit Date: 08/31/2024 Staff Ordering Physician: Linda Louis Seamer Operator: Kavitha Chapman RDCS Attending Provider: Linda Louis Referring Physician: Missy GIRON; Exam Type: CA echo doppler color flow Study Info Indications I45.10 - Unspecified right bundle-branch block Complete two-dimensional, color flow and Doppler transthoracic echocardiogram is performed. Strain analysis performed. Summary 1. Left ventricular chamber dimension is normal. 2. Left ventricular systolic function is normal with an ejection fraction by Biplane Method of Discs of 58 %. 3. The left ventricular diastolic function is normal. 4. Right ventricular systolic function is normal. 5. No significant valvular disease. Left Ventricle Left ventricular chamber dimension is normal. There is no increased left ventricular wall thickness. The left ventricular diastolic function is normal. Left ventricular systolic function is normal with an ejection fraction by Biplane Method of Discs of 58 %. Right Ventricle Right ventricular chamber dimension is normal. Right ventricular systolic function is normal. Left Atria Left atrial chamber dimension is normal. Right Atria Right atrial chamber dimension is normal. Atrial Septum Intact interatrial septum visualized by color flow imaging. Aortic Valve The aortic valve is probable trileaflet. There is no aortic valve stenosis. There is no aortic valve regurgitation. Pulmonic Valve The pulmonic valve is not well visualized. There is no pulmonic regurgitation. Mitral Valve There is no mitral valve regurgitation. Tricuspid Valve There is trace tricuspid valve regurgitation. Pericardium/Pleural There is no pericardial effusion. Inferior Vena Cava Normal inferior vena cava with <50% collapse upon inspiration consistent with elevated right atrial pressure, 8 mmHg. Aorta The aortic root size at the sinus of Valsalva is normal. Left Ventricular Outflow Tract Name Value Normal LVOT 2D LVOT Diameter 1.9 cm LVOT Doppler LVOT Peak Gradient 4 mmHg LVOT Mean Gradient 3 mmHg LVOT VTI 24 cm LVOT VTI/AV VTI Ratio 0.9 LVOT Stroke Volume 71 ml LVOT CO 4.8 l/min LVOT CI 2.5 l/min/m2 Pulmonic Valve Name Value Normal RVOT Doppler RVOT Peak Gradient 2 mmHg PV Doppler PV Peak Gradient 3 mmHg
== END 2024-08-31 09:52 | disposition home or self-care (01) ==
LOC: ANHCARD 09:53
PROVIDERS: PCP Family Medicine; Visit Provider Nurse Practitioner Family
DX: I45.10 Unspecified right bundle-branch block (principal)
CPT/HCPCS: 93306

== ENCOUNTER 2025-03-08 10:02 | Outpatient (CLI) | payer OTHER, SELFPAY ==
--- NOTE | 2025-03-08 11:00 | NEURO_ITS ---
Impression: # Complains of numbness of right hand. History of chemotherapy. ? # Bilateral Carpal Tunnel Syndrome, more involvement of right sensory and left motor.. ? # No ulnar neuropathy. ? # Normal needle/EMG exam. ??Nerve Conduction Studies Anti Sensory Summary Table ?Stim Site NR Peak (ms) P-T Amp (?V) Site1 Site2 Delta-P (ms) Dist (cm) Manuel (m/s) Left Median Anti Sensory (2-3nd Digit) Wrist ? 3.7 46.7 Wrist 2-3nd Digit 3.7 14.0 38 Wrist ? 3.9 79.0 Wrist 2-3nd Digit 3.7 14.0 38 Right Median Anti Sensory (2-3nd Digit) Wrist ? 5.1 18.3 Wrist 2-3nd Digit 5.1 14.0 27 Wrist ? 4.7 18.0 Wrist 2-3nd Digit 5.1 14.0 27 Left Radial Anti Sensory (Base 1st Digit) Wrist ? 1.8 45.6 Wrist Base 1st Digit 1.8 0.0 Right Radial Anti Sensory (Base 1st Digit) Wrist ? 2.2 29.8 Wrist Base 1st Digit 2.2 0.0 Left Ulnar Anti Sensory (5th Digit) Wrist ? 2.7 58.2 Wrist 5th Digit 2.7 14.0 52 Right Ulnar Anti Sensory (5th Digit) Wrist ? 2.5 53.4 Wrist 5th Digit 2.5 14.0 56 Motor Summary Table ?Stim Site NR Onset (ms) O-P Amp (mV) Site1 Site2 Delta-0 (ms) Dist (cm) Manuel (m/s) Left Median Motor (Abd Poll Brev) Wrist ? 4.8 2.9 Elbow Wrist 5.1 29.0 57 Elbow ? 9.9 2.5 Right Median Motor (Abd Poll Brev) Wrist ? 4.0 2.6 Elbow Wrist 5.1 29.0 57 Elbow ? 9.1 3.9 Left Ulnar Motor (Abd Dig Minimi) Wrist ? 2.9 5.7 A Elbow Wrist 4.8 28.0 58 A Elbow ? 7.7 4.7 Right Ulnar Motor (Abd Dig Minimi) Wrist ? 2.7 5.4 A Elbow Wrist 5.0 29.0 58 A Elbow ? 7.7 5.0 F Wave Studies ?NR F-Lat (ms) L-R F-Lat (ms) Left Median (Mrkrs) (Abd Poll Brev) ? 28.95 2.51 Right Median (Mrkrs) (Abd Poll Brev) ? 31.46 2.51 Left Ulnar (Mrkrs) (Abd Dig Min) ? 28.52 0.04 Right Ulnar (Mrkrs) (Abd Dig Min) ? 28.48 0.04 EMG ?Side Muscle Nerve Root Ins Act Fibs Amp Dur Recrt Comment Right 1stDorInt Ulnar C8-T1 Nml Nml Nml Nml Nml Right Ext Indicis Radial (Post Int) C7-8 Nml Nml Nml Nml Nml Right Ext Digitorum Radial (Post Int) C7-8 Nml Nml Nml Nml Nml Right BrachioRad Radial C5-6 Nml Nml Nml Nml Nml Right PronatorTeres Median C6-7 Nml Nml Nml Nml Nml Right Abd Poll Brev Median C8-T1 Nml Nml Nml Nml Nml Right ABD Dig Min Ulnar C8-T1 Nml Nml Nml Nml Nml Right FlexPolLong Median (Ant Int) C7-8 Nml Nml Nml Nml Nml Right Abd Poll Long Radial (Post Int) C7-8 Nml Nml Nml Nml Nml Left 1stDorInt Ulnar C8-T1 Nml Nml Nml Nml Nml Left Ext Indicis Radial (Post Int) C7-8 Nml Nml Nml Nml Nml Left Ext Digitorum Radial (Post Int) C7-8 Nml Nml Nml Nml Nml Left BrachioRad Radial C5-6 Nml Nml Nml Nml Nml Left PronatorTeres Median C6-7 Nml Nml Nml Nml Nml Left Abd Poll Brev Median C8-T1 Nml Nml Nml Nml Nml Left ABD Dig Min Ulnar C8-T1 Nml Nml Nml Nml Nml Left FlexPolLong Median (Ant Int) C7-8 Nml Nml Nml Nml Nml Left Abd Poll Long Radial (Post Int) C7-8 Nml Nml Nml Nml Nml MTDD
--- OUTSIDE RECORDS SUMMARY | 2025-03-08 11:09 | XMS_ITS ---
Author Organization [facility] [address] Address [address] [place] [address] Care Team Providers Care Hot Frame Tender Name Role Phone Jorge Nair MD Primary Care Provider [phone] Jimena Cordoba MD Unavailable [phone] Shyam Marshall MD Unavailable Winnie Wolfe MD Unavailable Sirena Cardenas MD Unavailable [phone] Jimena Cordoba MD Unavailable [phone] Active Problems Problem Noted Date Diagnosed Date History of breast reconstruction 09/20/2024 Abnormal EKG 09/15/2024 Family history of ischemic heart disease 024 High risk medication use 09/15/2024 Elevated blood pressure reading 09/15/2024 Malignant neoplasm of female breast 05/18/2024 Encounter for person encountering health service s 12/17/2023 History of reconstruction of right breast 2023 Hematoma (nontraumatic) of breast 11/06/2023 Malignant neoplasm of right female breast 2022 Malignant neoplasm of lower- outer quadrant of right breast of female, estrogen receptor positive 09/18/2023 Cancer Staging:Clinical stage from 09/04/2023: cT2, cN1(f), cM0, G1, ER+, KY+, HER2: Not Assessed - Unsigned Pathologic stage from 10/29/2023:Stage IA(pT2, pN1(sn), cM0, G1, ER+, KY+, HER2- ) - Unsigned Pathologic: Unsigned Current Treatment and Therapy Plans IV Maintenance Therapy Plan* Plan Start Date:01/09/2024 Plan Provider:Jimena Cordoba MD Linked Problems Malignant neoplasm of lower- outer quadrant of right breast of female, estrogen receptor positive (HCC) Treatment Medications No medications scheduled. Ribociclib / Aromatase Inhibitor 28 Day Cycles - Breast* Plan Start Date: 02/18/2025 Plan Provider:Jimena Cordoba MD Linked Problems Malignant neoplasm of lower- outer quadrant of right breast of female, estrogen receptor positive (HCC) Treatment Medications Current Day (Day 1 , Dispense Cycle - Planned for 02/18/2025) Next Day (Day 1, Cycle 1 - Planned for 03/18/2025) letrozole (FEMARA)ribociclib (KISQALI) letrozole (FEMARA) 2.5 mg tabletribociclib (KISQALI) 400 mg/day tablet No medications scheduled. Past Treatment and Therapy Plans Oncology Chemotherapy Treatment Plan Name Start Date Discontinue Date Treatment Medications Discontinue Reason Plan Provider Cycles Goserelin 28 Day Cycles - Breast 06/18/2024 07/23/2024 goserelin (ZOLADEX) Therapy Complete Jimena Cordoba MD Treatment not started TC: (DOCEtaxel / Cyclophospha mide) 21 Day Cycles - Breast 01/09/2024 06/18/2024 cycloPHOSphamide IVPB in 250 mL (vial 200 mg/mL)([id number])DOCEt barrett (TAXOTERE) IVPB in 250 mL (vial 20mg/mL) Therapy Complete Jimena Cordoba MD 6 of 6 cycles started Radiation Treatments (No Episode) * Course [id number]/01/2024 - 06/22/2024 Treatment Period Energy Fraction Dose Fractions Total Dose Plans Planned RCW_LNs 06/01/2024 - 06/22/2024 266 16 / 4,256 Reference Points Delivered [id number] 06/01/2024 - 06/22/2024 4,256 Lifetime Dose Tracking * Chemical Lifetime Dose Automatic Entry Manual Entr y Fluoro Time 0.175 minutes 0.175 minutes 0 minutes cyclophosphamide 3,628.294 mg/m2 (6,960 mg) 3,628.294 mg/m2 (6,960 mg) 0 mg/m2 (0 mg) Air kerma at the reference point (Ka,r) 6.369 mGy 6.369 mGy 0 mGy DLP 1,349 mGycm 1,349 mGycm 0 mGycm
--- OUTSIDE RECORDS SUMMARY | 2025-03-08 11:09 | XMS_ITS | Encounter Summary ---
Author Organization [facility] Healthcare Address [address] [place] [address] Care Team Providers Care Project Controls Scheduler Name Role Phone Jorge Nair MD Primary Care Provider + [phone] Jimena Cordoba MD Unavailable [phone] Shyam Marshall MD Unavailable Winnie Wolfe MD Unavailable [phone] Sirena Cardenas MD Unavailable [phone] Jimena Cordoba MD Unavailable [phone] Encounter Details Date Type Department Care Team (Late st Contact Info) Description 01/25/2025 Telephone [facility] Radiation Oncology [address] [facility] [place] [address] Marixa Elizondo NP [address] [facility] [address] [place] [address] Social History Tobacco Use Types Packs/Day Years Used Date Smoking Tobacco: Former Cigarettes 0.8 19 000 - 2019 Smokeless Tobacco: Never AUDIT-C Answer Date Recorded Q1: How often do you have a drink containing alc ohol? 2-4 times a month 12/16/2024 Q2: How many drinks containi ng alcohol do you have on a typical day when you are drinking? 3 or 4 12/16/2024 Q3: How often do you have si x or more drinks on one occasion? Less than monthly 12/16/2024 Personal Safety Answer Date Recorded Have you ever been in or are you currently in a harmful physical or emotional relationship or is someone making you feel afraid or unsafe? Denies 12/16/2024 Comments No Sex and Gender Information Value Date Recorded Sex Assigned at Not on file Legal Sex Female 9:40 AM CDT Gender Identity Not on file Sexual Orientation Not on file documented as of this encounter Plan of Treatment Not on file documented as of this encounter Visit Diagnoses Not on filedocumented in this encounter Care Teams Project Controls Scheduler Relationship Specialty Start Date End Date Jorge Nair MD PCP - General Family Medicine 03/17/23 Jimena Cordoba MD [address] DIV MEDICAL ONCOLOGY, [facility] [address] [place] [address] Medical Oncologist/Tong Carrier Medical Oncology 10/21/23 Shyam Marshall MD [address] [facility] [address] [place] [address] Radiation Oncologist Radiation Oncology 11/27/23 Winnie Wolfe MD [address] [place] [address] Surgeon Surgical Oncology 11/27/23 Sirena Cardenas MD [address] [facility] [address] [place] [address] Referring Physician Plastic Surgery 11/27/23 Jimena Cordoba MD [address] DIV MEDICAL ONCOLOGY, [facility] [address] [place] [address] Medical Oncologist/Tong Carrier Medical Oncology 04/02/24 documented as of this encounter
--- OUTSIDE RECORDS SUMMARY | 2025-03-08 11:10 | XMS_ITS | Clinical Summary ---
Author Organization [facility] [address] [facility] Address [address] [place] [address] Care Team Providers Care Dining Room Hostess Name Role Phone Jorge Nair MD Primary Care Provider [phone] Jimena Cordoba MD Unavailable [phone] Shyam Marshall MD Unavailable Winnie Wolfe MD Unavailable Sirena Cardenas MD Unavailable Jimena Cordoba MD Unavailable [phone] Allergies Active Allergy Reactions Criticality Noted Date Comments Amoxicillin-Pot Clavulanate Other (See comments) Low 11/21/2023 Yeast infection Medications sour alvarez extract (Tart Alvarze Extract) 1,000 mg capsuleIndication s:supplement Take 1 capsule by mouth every evening Taking 3,500mg daily Active DULoxetine DR (CYMBALTA) 30 mg capsule Take 3 capsules (90 mg total) by mouth daily 270 capsule 1 10/12/20 24 Active silver sulfadiazine (SILVADENE, SSD) 1 % creamIndications: S/P breast reconstruction Apply topically daily 50 g 12/24/19 25 Active LORazepam (Ativan) 0.5 mg tabletIndications :anxiety Take 1 tablet (0.5 mg total) by mouth as needed for anxiety 30 tablet 01/13/20 25 Active Additional Information Patient not taking.Reported on 02/18/2025 letrozole (FEMARA) 2.5 mg tablet TAKE 1 TABLET(2.5 MG) BY MOUTH DAILY 90 tablet 1 01/15/20 25 Active letrozole (FEMARA) 2.5 mg tablet 08/10/20 24 Active cloNIDine (CATAPRES) 0.1 mg tablet Take 1 tablet (0.1 mg total) by mouth nightly 30 tablet 2 02/12/20 25 Active Additional Information Patient not taking.Reported on 02/18/2025 fezolinetant (Veozah) tablet tabletIndications :Vasomotor Symptoms associated with Menopause Take 1 tablet (45 mg total) by mouth nightly 90 tablet 3 02/19/20 25 Active ribociclib (KISQALI) 400 mg/day tabletIndications :Malignant neoplasm of lower-outer quadrant of right breast of female, estrogen receptor positive (HCC) Take 2 tablets (400 mg total) by mouth daily for 21 days Take for 21 days, then stop for 7 days. Take with or without food at approximately the same time each day, preferably in the morning. 42 tablet 02/19/20 25 025 Active fezolinetant (Veozah) tablet tablet Take 1 tablet (45 mg total) by mouth daily 025 Discontin ued(Dupli kristy order) fezolinetant (Veozah) tablet tablet 025 Discontin ued(Reord er) Active Problems Problem Noted Date Diagnosed Date [...] from 09/04/2023: cT2, cN1(f), cM0, G1, ER+, WV+, HER2: Not Assessed - Unsigned Pathologic stage from 10/29/2023:Stage IA(pT2, pN1(sn), cM0, G1, ER+, WV+, HER2- ) - Unsigned Pathologic: Unsigned Encounters Date Type Department Care Team Description 03/03/2025 9:30 AM CDT Therapy [facility] Occupational Therapy [address] 6th [place] [address] [place] [id number] Chavez Lima OT S/P breast reconstruction (Primary Dx); Shoulder joint stiffness, bilateral; Abdominal weakness 02/22/2025 Telephone [facility] [address] [facility] [address] [place] [address] Genie Weaver CPhT 02/21/2025 Documentation [facility] Oncology [address] [place] [address] Annalisa Hameed RN 02/18/2025 1:30 PM CDT Office Visit [facility] Oncology [address] [place] [address] Jimena Cordoba MD Malignant neoplasm of lower-outer quadrant of right breast of female, estrogen receptor positive (HCC) (Primary Dx) 02/18/2025 1:00 PM CDT Lab [facility] [address] [place] [address] Malignant neoplasm of lower-outer quadrant of right breast of female, estrogen receptor positive (HCC) 02/18/2025 12:45 PM CDT Lab [facility] Oncology [address] [place] [address] Malignant neoplasm of lower-outer quadrant of right breast of female, estrogen receptor positive (HCC) 02/14/2025 Telephone [facility] Surgery [address] [facility] [address] [place] [phone] Sang Katz MD Return to work letter 02/11/2025 11:00 AM CDT Office Visit [facility] Psychiatry [address] [facility] [address] [place] [phone] Alfred Arnold MD Major depressive disorder in partial remission, unspecified whether recurrent (Primary Dx) 02/01/2025 2:45 PM CDT Office Visit [facility] Surgery [address] [place] [address] [address] [place] [phone] aSng Katz MD Status post breast reconstruction (Primary Dx) 01/25/2025 Telephone [facility] Radiation Oncology [address] [place] [address] Marixa Elizondo NP 01/14/2025 2:15 PM LEARNING AND DEVELOPMENT DIRECTOR Office Visit [facility] Surgery [address] [place] [address] 6th [place] [address] [place] [phone] Nora Lee PA Malignant neoplasm of lower-outer quadrant of right breast of female, estrogen receptor positive (HCC) (Primary Dx) 01/14/2025 1:00 PM LEARNING AND DEVELOPMENT DIRECTOR Therapy [facility] Occupational Therapy [address] [place] [address] 6th [place] [address] [place] [phone] Rosamaria Mead OT S/P breast reconstruction (Primary Dx); Shoulder joint stiffness, bilateral; Abdominal weakness 01/12/2025 2:00 PM LEARNING AND DEVELOPMENT DIRECTOR Office Visit [facility] Psychiatry [address] [facility] [address] [place] [address] Alfred Arnold MD Major depressive disorder in partial remission, unspecified whether recurrent (Primary Dx) 01/12/2025 Telephone [facility] Medicine Radiation Oncology [address] [place] [address] Marixa Elizondo NP 01/11/2025 10:15 AM LEARNING AND DEVELOPMENT DIRECTOR Office Visit [facility] Radiation Oncology [address] [place] [address] Marixa Elizondo NP Malignant neoplasm of lower-outer quadrant of right breast of female, estrogen receptor positive (HCC) [C50.511, Z17.0] 01/03/2025 2:00 PM LEARNING AND DEVELOPMENT DIRECTOR Office Visit [facility] Surgery [address] [place] [address] [address] [place] [address] Sang Katz MD Encounter to discuss breast reconstruction (Primary Dx) 12/27/2024 2:00 PM LEARNING AND DEVELOPMENT DIRECTOR Office Visit [facility] Surgery [address] [place] [address] [address] TIFFANIE Waller [phone] S/P breast reconstruction (Primary Dx) 12/24/2024 11:00 AM LEARNING AND DEVELOPMENT DIRECTOR Office Visit [facility] Surgery [address] [place] [address] [address] [place] [address] S/P breast reconstruction 12/16/2024 7:30 AM LEARNING AND DEVELOPMENT DIRECTOR - 12/16/2024 5:00 PM LEARNING AND DEVELOPMENT DIRECTOR Surgery [facility] [address] [place] [address] Sang Katz MD FREE FLAP DEEP INFERIOR EPIGASTRIC PERFORATORS 12/16/2024 7:28 AM LEARNING AND DEVELOPMENT DIRECTOR Anesthesia Event [facility] [address] [place] [address] Eldon Edwards MD Hall, Jill Marie, NP 12/16/2024 5:34 AM LEARNING AND DEVELOPMENT DIRECTOR - 12/19/2024 1:10 PM LEARNING AND DEVELOPMENT DIRECTOR Hospital Encounter [address] [address] Sang Katz MD History of breast reconstruction Discharge Disposition: Discharge to home or self care 12/15/2024 12:50 PM LEARNING AND DEVELOPMENT DIRECTOR [address] [address] Malignant neoplasm of lower-outer quadrant of right breast of female, estrogen receptor positive (HCC); Hypercalcemia from Last 3 Months Immunizations Immunization Administration Dates Next Due Influenza, Unspecified 08/27/2024 Surgical History Surgery Date Site/Laterality Comments HYSTERECTOMY 07/11/2023 - 08/09/2023 MANDIBLE FRACTURE SURGERY 11/10/2013 - 11/09/2014 UTERINE FIBROID EMBOLIZATION 11/10/2010 - 11/09/2011 BREAST BIOPSY US GUIDED BIOPSY LYMPH NODE SUPERFICIAL LEFT 09/23/2023 N/A BREAST SOFT TISSUE MARKER PLACEMENT LEFT 10/22/2023 Right MASTECTOMY 10/29/2023 Bilateral TISSUE PULP GRINDER FEEDER REMOVAL 11/06/2023 Right EVACUATION HEMATOMA- RIGHT BREAST PORTACATH PLACEMENT BREAST RECONSTRUCTION CONTRAST INJECTION EVALUATION CENTRAL VENOUS ACCESS DEVICE 01/15/2024 N/A BREAST SURGERY 12/11/2023 - 01/08/2024 tissue expanders Medical History Medical History Date Comments Depression Uterine fibroid 07/25/2023 Cancer (HCC) breast PONV (postoperative nausea and vomiting) no delayed discharge, scopo patch Motion sickness Family History Medical History Relation Name Comments Cancer Father Coronary artery disease Father s/p cabg Prostate cancer Father Stroke Father Cervical cancer Maternal Grandmother Breast cancer Maternal Great-Grandmother 1950s No Known Problems Mother Leukemia Paternal Grandfather Stomach cancer Paternal Grandmother Malig Hyperthermia Neg Hx Pseudochol deficiency Neg Hx Relation Name Status Comments Father Alive Maternal Grandmother Maternal Great-Grandmother Alive Mother Alive Paternal Grandfather Paternal Grandmother Social History Tobacco Use Types Packs/Day Years Used Date Smoking Tobacco: Former Cigarettes 0.8 19 2 000 - 2019 Smokeless Tobacco: Never Tobacco Cessation:Counseling Given: Not Answered AUDIT-C Answer Date Recorded Q1: How often [...] on file Sexual Orientation Not on file Obstetrics History Para Term AB IAB SAB Ectopic Multiple Livin g Live Births 0 0 Last Filed Vital Signs Vital Sign Reading Time Taken Comments Blood Pressure 134/91 02/18/2025 1:03 PM CDT Pulse 70 02/18/2025 1:03 PM CDT Temperature 36.6 C (97.8 F) 02/18/2025 1:03 PM CDT Respiratory Rate 18 02/18/2025 1:03 PM CDT Oxygen Saturation 100% 02/18/2025 1:03 PM CDT Inhaled Oxygen Concentration - - Weight 86.5 kg (190 lb 9.6 oz) 02/18/2025 1:03 P M CDT Height 169.1 cm (5' 6.58 ) 02/18/2025 1:03 PM CD T Body Mass Index 30.23 02/18/2025 1:03 PM CDT Plan of Treatment Health Maintenance Due Date Last Done Comments Depression Screening 1981 Hepatitis C Screening 1981 DTaP/Tdap/Td Vaccine (1 - Tdap) 1992 Varicella Vaccines (1 of 2 - 13+ 2-dose series) 1994 Hepatitis B Screening 1999 Regular Well Visit/Exam 18-64 1999 Pneumococcal vaccine <65 (1 of 2 - PCV) 2000 Zoster Vaccine (1 of 2) 2000 Breast Cancer Screening-Mammogram 07/22/2024 07/22/2023 Influenza Vaccine Completed 09/16/2024, 08/27/2024, 09/14/2018 HPV Vaccines Aged Out No longer eligi ble based on patient's age to complete this topic Medical Devices Implanted Type Area Heel Finisher Device Identifier Shelf Expiration Date Model / Serial / Lot [employer]ti [employer] Inc Graft Tissue Tailored Dermis Large 1mm Thick Cortiva 10.2x21.1cm [id number] - [id number] - [id number] Implanted:Qty: 1 on 10/29/2023 by Sirena Cardenas MD at [facility] Breast Right: Breast [employer] Inc 01/08/2028 [id number] / [id number] / [id number] Description:IMPLANT PAUSE PE RFORMED Reclutec [place] Microvascular Anastomoses 1.5mm Vest Presser Anastomosis Sterile [id number] - [id number] Implanted:Qty: 1 on 12/16/2024 by Sang Katz MD at [facility] Clip Left: Breast [employer] Allian 07/14/2028 [id number] / / [id number] Wikibon Allian Vest Presser Flow Microvascular Dual Ended [place]cott Vest Presser 2.5mm [id number] - [id number] Implanted:Qty: 1 on 12/16/2024 by Sang Katz MD at [facility] Clip Left: Breast [employer] Allian 03/29/2029 [id number] FC / / [id number]- [id number] [employer] Allian Vest Presser Flow Microvascular Dual Ended [place]cott Vest Presser 2.5mm [id number] - [id number] Implanted:Qty: 1 on 12/16/2024 by Sang Katz MD at [facility] Clip Left: Breast [employer] Allian 03/29/2029 [id number] / / [id number]- [id number] R[employer] Graft Tissue Tailored Dermis Large 1mm Thick Cortiva 10.2x21.1cm [id number] - [id number] - [id number] Implanted:Qty: 1 on 10/29/2023 by Sirena Cardenas MD at [facility] Other - see comments Left: Breast [employer] 01/08/2028 [id number] / [id number] / [id number] Description:IMPLANT PAUSE PE RFORMED Tepha Inc Mesh Surg [place] 3d 21x7.5cm Soft Tissue Scaffold [place] Sh3d06 - [id number] Implanted:Qty: 1 on 10/29/2023 by Sirena Cardenas MD at [facility] Other - see comments Bilatera l: Breast TEPHA INC 10/02/2026 SH3D06 / / [id number] Description:IMPLANT PAUSE PE RFORMED [employer] Graft Tissue Tailored Dermis Large 1mm Thick Cortiva 10.2x21.1cm [id number] - [id number] - [id number] Implanted:Qty: 1 on 12/19/2023 by Sirena Cardenas MD at [facility] Other - see comments Right: Breast [employer] 04/09/2028 [id number] / [id number] / [id number] Description:Implant pause pe rformed. Tepha Inc Mesh Surgical Synthetic [place] 3d Polypropylene Sh3d05 - Sn/A - [id number] Implanted:Qty: 1 on 12/19/2023 by Sirena Cardenas MD at [facility] Other - see comments Right: Breast [employer] INC 11/28/2026 SH3D05 / N/A / [id number] Description:Implant pause pe rformed. Plate-12/11/2013 Implanted:2013 (Quantity not on file) Plate Bilatera l: Face [employer] Marker Tissue 1 Year Visibility Butterfly Titanium Hydrogel Hydromark 15ga 4009-12-25-T4 - [id number] Implanted:Qty: 1 on 09/23/[address] [facility] [employer] Inc [id number] 4010-02- 15-T4 / / [id number] [employer] Marker Tissue Needle Delivery Spiral Capped Seed Radiopaque Fci Stainless Steel Low Nickel Sentimag 27oth7mq [id number] - [id number] Implanted:Qty: 1 on 10/22/[address] [facility] Right: Axilla [employer] Inc [id number] / / Explanted Type Area Heel Finisher Device Identifier Shelf Expiration Date Model / Serial / Lot Allergan Usa Inc Implant Mammary Natrelle Te Smooth 528m-Ki-41-T With Fourte 043f-Ju-62-T - [id number] - [id number] Implanted:Qty: 1 on 12/19/2023 by Sirena Cardenas MD at [facility] Explanted:Qty: 1 on 12/16/2024 at [facility] Breast Right: Breast [employer] [id number] 05/24/2028 133S-MX-1 4-T / [id number] / [id number] Description:Implant pause pe rformed. [employer]er[employer] Implant Mammary Natrelle Te Smooth 419a-Ff-42-T With Fourte 798k-Ml-34-T - [id number] - [id number] Implanted:Qty: 1 on 10/29/2023 by Sirena Cardenas MD at [facility] Explanted:Qty: 1 on 11/06/2023 by Deborah Corrigan MD at [facility] Other - see comments Right: Breast [employer] 03/21/2028 133S-MX-1 4-T / [id number] / Description:IMPLANT PAUSE PE RFORMED [employer] Powerport Airguard 8fr 1 Lumen Attachable Catheter Intermediate Latex Free [id number] - Sn/A - [id number] Implanted:Qty: 1 on 12/19/2023 by Winnie Wolfe MD at [facility] Explanted:Qty: 1 on 05/24/2024 by Winnie Wolfe MD at [facility] Other - see comments Left: Chest [employer] 05/09/2025 [id number] / N/A / [id number] Description:Catheter intact [employer] Implant Mammary Natrelle Te Smooth 316e-Bf-31-T With Fourte 992y-Bt-94-T - [id number] - [id number] Implanted:Qty: 1 on 10/29/2023 by Sirena Cardenas MD at [facility] Explanted:Qty: 1 on 12/16/2024 at [facility] Other - see comments Left: Breast [employer] 12/03/2027 133S-MX-1 4-T / [id number] / Description:IMPLANT PAUSE PE RFORMED Procedures Procedure Name Priority Date/Time Associated Diagnosis Comments EGFR Routine 02/18/2025 1:00 PM CDT Malignant neoplasm of lower-outer quadrant of right breast of female, estrogen receptor positive (HCC) COMPREHENSIVE METABOLIC PANEL Routine 02/18/2025 1:00 PM CDT Malignant neoplasm of lower-outer quadrant of right breast of female, estrogen receptor positive (HCC) EGFR Timed 12/16/2024 10:44 PM LEARNING AND DEVELOPMENT DIRECTOR DIFFERENTIAL AUTO Timed 12/16/2024 10:44 PM LEARNING AND DEVELOPMENT DIRECTOR CBC WITH AUTO DIFFERENTIAL Timed 12/16/2024 10:44 PM LEARNING AND DEVELOPMENT DIRECTOR BASIC METABOLIC PANEL Timed 12/16/2024 10:44 PM LEARNING AND DEVELOPMENT DIRECTOR SURGICAL PATHOLOGY Routine 12/16/2024 9: 07 AM LEARNING AND DEVELOPMENT DIRECTOR History of breast reconstruction WV AN PROCEDURE PLACEHOLDER Routine 12/16/2024 8:30 AM LEARNING AND DEVELOPMENT DIRECTOR WV AN PROCEDURE PLACEHOLDER Routine 12/16/2024 8:30 AM LEARNING AND DEVELOPMENT DIRECTOR WV AN PROCEDURE PLACEHOLDER Routine 12/16/2024 8:12 AM LEARNING AND DEVELOPMENT DIRECTOR WV AN ELECTIVE ENDOTRACHEAL AIRWAY Routine 12/16/2024 8:12 AM LEARNING AND DEVELOPMENT DIRECTOR REMOVAL TISSUE PULP GRINDER FEEDER 12/16/2024 7:30 AM LEARNING AND DEVELOPMENT DIRECTOR History of breast reconstruction Special Needs Need Leica and SPY CAPSULECTOMY BREAST 12/16/2024 7 :30 AM LEARNING AND DEVELOPMENT DIRECTOR History of breast reconstruction Special Needs Need Leica and SPY FREE FLAP DEEP INFERIOR EPIGASTRIC PERFORATORS 12/16/2024 7:30 AM LEARNING AND DEVELOPMENT DIRECTOR History of breast reconstruction Special Needs Need Leica and SPY EGFR Routine 12/15/2024 12:54 PM LEARNING AND DEVELOPMENT DIRECTOR Malignant neoplasm of lower-outer quadrant of right breast of female, estrogen receptor positive (HCC) Hypercalcemia BASIC METABOLIC PANEL Routine 12/15/2024 12:54 PM LEARNING AND DEVELOPMENT DIRECTOR Malignant neoplasm of lower-outer quadrant of right breast of female, estrogen receptor positive (HCC) Hypercalcemia SCREENING MAMMOGRAM BILATERAL W ALPHONSE Schedule Routine, Read Routine (OP Routine) 07/22/2023 10:15 AM CDT Screening mammogram, encounter for from Last 3 Months or Most Recently Relevant to Health Maintenance Results * eGFR (02/18/2025 1:00 PM CDT) eGFR >90 >=60 mL/min/1. 73 m2 Comment: Interpretive Data Reference Interval Normal >/= 90 mL/min/1.73m2 Mildly decreased* 60 - 89 mL/min/1.73m2 Mildly to moderately decreased 45 - 59 mL/min/1.73m2 Moderately to severely decreased 30 - 44 mL/min/1.73m2 Severely decreased 15 - 29 mL/min/1.73m2 Kidney Failure < 15 mL/min/1.73m2 *Relative to young adult level Estimated glomerular filtration rate is determined by the 2020 CKD-EPI equation recommended by the National Kidney Foundation (A Unifying Approach to GFR Estimation: Recommendations of the NKF-ASK Task Force on Reassessing the Inclusion of Race in Diagnosing Kidney Disease, JASN 2020). The CKD-EPI equation should not be used for patients with unstable renal function and has not been validated in children and those over 70. Current interpretive data was last reviewed 2021. Blood 02/18/2025 1:00 PM CDT 02/18/2025 1:26 PM CDT us Jimena Cordoba MD LAB BLOOD ORDERABLES F inal Result [facility] [address] [facility] Department [place] [address] * Comprehensive metabolic panel (02/18/2025 1:00 PM CDT) Pathologist [facility] Sodium 138 135 - 145 mmol/L Potassium, pl 4.1 3.3 - 4.9 mmol/L [facility] Chloride 103 97 - 110 mmol/L [facility] CO2 22 22 - 32 mmol/L [facility] Anion gap 14 2 - 15 mmol/L [facility] BUN 13 6 - 25 mg/dL [facility] Creatinine 0.61 0.60 - 1.10 mg/dL [facility] Glucose 90 70 - 199 mg/dL [facility] Comment: Interpretive Data Fasting glucose >/= 126 mg/dl is diagnostic for diabetes. Fasting is defined as no caloric intake for at least 8 hours. Fasting glucose between 100 mg/dl to 125 mg/dl is diagnostic of prediabetes. In a patient with classic symptoms of hyperglycemia or hyperglycemic crisis, a random glucose >/= 200 mg/dl is diagnostic for diabetes. In the absence of unequivocal hyperglycemia, results should be confirmed by repeat testing. The classification and Diagnosis of Diabetes Diabetes Care 2021; 46: S19-S40. Current interpretive data was last revised 2022. Calcium 10.0 8.5 - 10.3 mg/dL [facility] Bilirubin, total 0.4 0.1 - 1.2 mg/dL [facility] Protein, pl 7.3 6.5 - 8.5 g/dL [facility] Albumin 4.4 3.5 - 5.0 g/dL [facility] Alk phos 93 40 - 130 Units/L [facility] ALT 11 7 - 45 Units/L [facility] AST 16 10 - 45 Units/L [facility] Blood 02/18/2025 1:00 PM CDT 02/18/2025 1:26 PM CDT Narrative [facility] - 02/18/2025 1:37 PM CDT WITH ROV us Jimena Cordoba MD LAB BLOOD ORDERABLES F inal Result [facility] [address] [facility] Department [place] [address] * eGFR (12/16/2024 10:44 PM LEARNING AND DEVELOPMENT DIRECTOR) eGFR >90 >=60 mL/min/1. 73 m2 Comment: Interpretive Data Reference Interval Normal >/= 90 mL/min/1.73m2 Mildly decreased* 60 - 89 mL/min/1.73m2 Mildly to moderately decreased 45 - 59 mL/min/1.73m2 Moderately to severely decreased 30 - 44 mL/min/1.73m2 Severely decreased 15 - 29 mL/min/1.73m2 Kidney Failure < 15 mL/min/1.73m2 *Relative to young adult level Estimated glomerular filtration rate is determined by the 2020 CKD-EPI equation recommended by the National Kidney Foundation (A Unifying Approach to GFR Estimation: Recommendations of the NKF-ASK Task Force on Reassessing the Inclusion of Race in Diagnosing Kidney Disease, JASN 202). The CKD-EPI equation should not be used for patients with unstable renal function and has not been validated in children and those over 70. Current interpretive data was last reviewed 2021. Blood 12/16/2024 10:4 4 PM LEARNING AND DEVELOPMENT DIRECTOR 12/16/2024 11:41 PM LEARNING AND DEVELOPMENT DIRECTOR us Sang Katz MD LAB BLOOD ORDERABLES Final Result [facility] [address] [facility] [place] [address] * (ABNORMAL) Differential, auto (12/16/2024 10:44 PM LEARNING AND DEVELOPMENT DIRECTOR) Neutrophil abs 4.4 1.5 - 6.5 K/cumm Imm gran abs 0.0 0.0 - 0.1 K/cumm [facility] Lymphocyte abs 0.5(L) 0.8 - 3.3 K/cumm [facility] Monocyte abs 0.3 0.2 - 0.8 K/cumm [facility] Eosinophil abs 0.0 0.0 - 0.5 K/cumm [facility] Basophil abs 0.0 0.0 - 0.1 K/cumm [facility] Neutrophil pct 84.7 % [facility] Comment: Interpretive Data Percent cell count reference ranges are not reported, since discordance with absolute values may lead to misinterpretation of CBC data. Current Interpretive Data was last revised on 2018. Imm gran pct 0.2 % [facility] Comment: Interpretive Data Percent cell count reference ranges are not reported, since discordance with absolute values may lead to misinterpretation of CBC data. Current Interpretive Data was last revised on 2018. Lymphocyte pct 8.7 % [facility] Comment: Interpretive Data Percent cell count reference ranges are not reported, since discordance with absolute values may lead to misinterpretation of CBC data. Current Interpretive Data was last revised on 2018. Monocyte pct 6.2 % [facility] Comment: Interpretive Data Percent cell count reference ranges are not reported, since discordance with absolute values may lead to misinterpretation of CBC data. Current Interpretive Data was last revised on 2018. Eosinophil pct 0.0 % [facility] Comment: Interpretive Data Percent cell count reference ranges are not reported, since discordance with absolute values may lead to misinterpretation of CBC data. Current Interpretive Data was last revised on 2018. Basophil pct 0.2 % [facility] Comment: Interpretive Data Percent cell count reference ranges are not reported, since discordance with absolute values may lead to misinterpretation of CBC data. Current Interpretive Data was last revised on 2018. Blood 12/16/2024 10:4 4 PM LEARNING AND DEVELOPMENT DIRECTOR 12/16/2024 11:41 PM LEARNING AND DEVELOPMENT DIRECTOR Sang Katz MD LAB BLOOD ORDERABLES Final Result Performing Organization Address City/[facility]/ZIP Co de Phone Number [facility] Department of [facility] - [facility] Reviews & [place] [address] * (ABNORMAL) CBC with auto differential (12/16/2024 10:44 PM LEARNING AND DEVELOPMENT DIRECTOR) WBC 5.2 3.8 - 9.9 K/cumm Hgb 8.5(L) 11.9 - 15.5 g/dL [facility] Hct 25.4(L) 35.6 - 45.5 % [facility] Plt 161 150 - 400 K/cumm [facility] MPV 10.4 9.1 - 12.3 fL [facility] RBC 2.81(L) 3.90 - 5.20 M/cumm [facility] MCV 90.4 81.3 - 96.4 fL [facility] MCH 30.2 27.1 - 33.3 pg [facility] MCHC 33.5 32.3 - 35.7 g/dL [facility] RDW CV 12.4 11.1 - 14.9 % [facility] RDW SD 41.0 35.7 - 48.1 fL [facility] NRBC abs 0.00 0.00 - 0.01 K/cumm [facility] Blood 12/16/2024 10:4 4 PM LEARNING AND DEVELOPMENT DIRECTOR 12/16/2024 11:41 PM LEARNING AND DEVELOPMENT DIRECTOR us Sang Katz MD LAB BLOOD ORDERABLES Final Result Performing Organization Address City/[facility]/ZIP Co de Phone Number [facility] Department [place] [address] * (ABNORMAL) Basic metabolic panel (12/16/2024 10:44 PM LEARNING AND DEVELOPMENT DIRECTOR) Sodium 135 135 - 145 mmol/L Potassium, pl 4.1 3.3 - 4.9 mmol/L [facility] Chloride 106 97 - 110 mmol/L [facility] CO2 14(L) 22 - 32 mmol/L [facility] Anion gap 15 2 - 15 mmol/L [facility] BUN 4(L) 6 - 25 mg/dL [facility] Creatinine 0.34(L) 0.60 - 1.10 mg/dL [facility] Glucose 64(L) 70 - 199 mg/dL [facility] Comment: Interpretive Data Fasting glucose >/= 126 mg/dl is diagnostic for diabetes. Fasting is defined as no caloric intake for at least 8 hours. Fasting glucose between 100 mg/dl to 125 mg/dl is diagnostic of prediabetes. In a patient with classic symptoms of hyperglycemia or hyperglycemic crisis, a random glucose >/= 200 mg/dl is diagnostic for diabetes. In the absence of unequivocal hyperglycemia, results should be confirmed by repeat testing. The classification and Diagnosis of Diabetes Diabetes Care 2021; 46: S19-S40. Current interpretive data was last revised 2022. Calcium 6.7(L) 8.5 - 10.3 mg/dL [facility] Blood 12/16/2024 10:4 4 PM LEARNING AND DEVELOPMENT DIRECTOR 12/16/2024 11:41 PM LEARNING AND DEVELOPMENT DIRECTOR us Sang Katz MD LAB BLOOD ORDERABLES Final Result [facility] [place] [address] * Surgical pathology (12/16/2024 9:07 AM LEARNING AND DEVELOPMENT DIRECTOR) Tissue specimen (specimen) (Breast, capsular tissue) 12/16/2024 9:07 AM LEARNING AND DEVELOPMENT DIRECTOR Tissue specimen (specimen) (Breast, capsular tissue) 12/16/2024 9:33 AM LEARNING AND DEVELOPMENT DIRECTOR Tissue specimen (specimen) (Skin, excision) 12/16/2024 5:33 PM LEARNING AND DEVELOPMENT DIRECTOR Tissue specimen (specimen) (Skin, excision) 12/16/2024 5:43 PM LEARNING AND DEVELOPMENT DIRECTOR Narrative PATHOLOGY [facility] - 12/21/2024 11:08 AM LEARNING AND DEVELOPMENT DIRECTOR EPIC results best viewed via link to PDF [facility] [place] [address] Note to Patients: This report may contain a detailed description of human tissue sent by a health care provider to the laboratory for pathologic evaluation. The content of this report is essential for diagnosis and may provide important critical findings. This information may be unfamiliar to patients to review without a medical professional present. It is advised that the patient review this report in the presence of a health care provider who can answer questions and explain the details. SURGICAL PATHOLOGY REPORT FINAL Patient Name: JOSE CHRISTIAN Gender: F : 1980 (Age: 44) Address: [address] [place], [place] [id number] [facility] #: [id number] Taken:12/16/2024 Received:12/16/2024 Reported: 12/21/2024 Patient Type: [facility] Inpatient Service: Plastic Surgery Location: [place] [address] Physician(s): Katlyn Stubbs M.D. Diagnosis: A. Breast, right, capsulectomy - Fibrous capsule - No evidence of atypia or malignancy B. Breast, left, capsulectomy - Fibrous capsule - No evidence of atypia or malignancy C. Skin, left breast, reconstruction - Portion of skin with attached fibrous capsule - No evidence of atypia or malignancy D. Skin, right breast, reconstruction - Portion of skin with attached fibrous capsule - No evidence of atypia or malignancy [facility] [place]/12/20/2024 19:35 By this signature, I attest that the above diagnosis is based upon my personal examination of the slides(and/or other material indicated in the diagnosis). Jose David Benjamin M.D. Report Electronically Reviewed and Signed Out By Jose David Benjamin M.D. 12/21/2024 11:08:11 Darci Rubin M.D. History: The patient is a 44-year-old woman with right breast cancer status post bilateral mastectomy. Operative procedure: bilateral capsulectomy and reconstruction. Specimen(s) Received: A: Right breast capsule B: Left breast capsule C: Left breast skin D: Right breast skin Gross Description: Received in four formalin jars labeled with the patient's identifiers. A. Labeled right breast capsule are multiple fragments of rubbery wong tissue grossly consistent with fragmented breast capsule (8.2 x 4.0 x 1.9 cm in aggregate) each with one smooth purple pink surface and an opposing roughened purple wong surface. There are no focal lesions. Impregnator sections are submitted in cassette A1. Jar 1 B. Labeled left breast capsule are two irregular and frayed sheets of rubbery purple wong tissue grossly consistent with a fragmented breast capsule (9.5 x 5.2 x 1.2 cm in aggregate) each with one smooth purple pink surface and an opposing roughened purple wong surface. There are no focal lesions. Impregnator sections are submitted in cassette B1. Jar 1 C. Labeled left breast skin are two irregular pieces of unremarkable lightly pigmented skin and underlying adipose tissue (10.2 x 6.2 x 0.9 cm in aggregate). The larger fragment has a piece of rubbery purple tissue on the deep surface (8.2 x 2.0 x 0.2 cm) grossly consistent with a partial breast capsule. Serial sections show no focal lesions. A paper sales representative section is submitted in cassette C1. Jar 2 D. Labeled right breast skin are two irregular pieces of lightly pigmented skin and underlying adipose tissue (7.5 x 5.3 x 1.0 cm in aggregate). The smaller fragment has a segment of rubbery wong tissue on its deep surface grossly consistent with a partial breast capsule (3.2 x 1.5 x 0.2 cm). Serial sections show no focal lesions. Impregnator sections are submitted in cassette D1. Jar 0 bao2/12/17/2024 10:52 PA(s): NADEEN Diop (ASCP)CM By this signature, I attest that the above diagnosis is based upon my personal examination of the slides(and/or other material). Addenda/Procedures The performance characteristics of some immunohistochemical stains, fluorescence in-situ hybridization tests and immunophenotyping by flow cytometry cited in this report (if any) were determined by the Surgical Pathology and Flow Cytometry Departments at [facility] as part of an ongoing clinical quality analyst program and in compliance with federally mandated regulations drawn from the Clinical Laboratory Improvement Act of 1988 (CLIA '88). Some of these tests rely on the use of analyte specific reagents and are subject to specific labeling requirements by the US Food and Drug Administration. Such diagnostic tests may only be performed in a facility that is certified by the Department of Health and Human Services as a high complexity laboratory under CLIA '88. The FDA has determined that such clearance or approval is not necessary. This test is used for clinical purposes. It should not be regarded as investigational or for research. Nevertheless, federal rules concerning the medical use of analyte specific reagents require that the following disclaimer be attached to the report: This test was developed and its performance characteristics determined by the Surgical Pathology and Flow Cytometry Departments of [facility]. It has not been cleared or approved by the U. S. Food and Drug Administration. IMAGES AND SCANNED DOCUMENTS, IF INCLUDED, ONLY VIEWABLE IN PDF VERSION OF REPORT us Sang Katz MD LAB PATHOLOGY ORDERA BLES Final Result PATHOLOGY [facility] 3rd Floor [place], [place] [phone] * [place] AN PROCEDURE PLACEHOLDER (12/16/2024 8:30 AM LEARNING AND DEVELOPMENT DIRECTOR) Macario Carlisle CRNA - 12/16/2024 8:30 AM LEARNING AND DEVELOPMENT DIRECTOR Macario Snyder CRNA 12/16/2024 8:31 AM Peripheral IV Catheter Preprocedure prep: Prep solution: chlorhexadine PPE: gloves and provider hat/mask PIV line: Laterality: left Site: wrist Catheter size: 18 g Technique: direct visualization Procedure details: good blood return and occlusive dressing applied Number of attempts: 1 Assessment: Events: patient tolerated procedure well with no complications Eldon Edwards MD ANESTHESIA ORDERABLES Final Res ult * [place] AN PROCEDURE PLACEHOLDER (12/16/2024 8:30 AM LEARNING AND DEVELOPMENT DIRECTOR) Macario Carlisle CRNA - 12/16/2024 8:30 AM LEARNING AND DEVELOPMENT DIRECTOR Macario Snyder CRNA 12/16/2024 8:30 AM Peripheral IV Catheter Patient location: pre-op holding Preprocedure prep: Prep solution: chlorhexadine PPE: gloves and provider hat/mask PIV line: Laterality: left Site: hand Catheter size: 20 g Technique: direct visualization Procedure details: good blood return and occlusive dressing applied Number of attempts: 1 Assessment: Events: patient tolerated procedure well with no complications Eldon Edwards MD ANESTHESIA ORDERABLES Final Res ult * [place] AN ELECTIVE ENDOTRACHEAL AIRWAY, [place] AN PROCEDURE PLACEHOLDER (12/16/2024 8:12 AM LEARNING AND DEVELOPMENT DIRECTOR) Narrative Macario Snyder CRNA - 12/16/2024 8:12 AM LEARNING AND DEVELOPMENT DIRECTOR Macario Snyder, ALFRED 12/16/2024 8:12 AM Airway Patient location: OR Urgency: elective Indications for airway management: anesthesia and airway protection Difficult airway: no Emergent airway documentation: Risks and benefits discussed: yes Consent obtained: yes Consent given by: patient Airway prep: Preoxygenated: yes Patient position: sniffing Mask difficulty assessment: 1 - vent by mask Spontaneous ventilation during airway: absent Sedation level during airway: GA Final airway details: Final airway type: endotracheal airway Tube type: ETT ETT size: 7.0 mm Cuffed: yes Technique used for successful ETT placement: direct laryngoscopy Devices/Methods used in placement: intubating stylet Insertion site: oral Blade type: Natalie Blade size: 3 Cormack-Lehane (direct): grade I - full view of glottis Cuff inflated with: air ETT to teeth: 21 cm Placement verified by: auscultation and CO2 detection Airway secured with: silk tape Number of attempts: 1no Eldon Edwards MD ANESTHESIA ORDERABLES Final Res ult * eGFR (12/15/2024 12:54 PM LEARNING AND DEVELOPMENT DIRECTOR) eGFR >90 >=60 mL/min/1. 73 m2 Comment: Interpretive Data Reference Interval Normal >/= 90 mL/min/1.73m2 Mildly decreased* 60 - 89 mL/min/1.73m2 Mildly to moderately decreased 45 - 59 mL/min/1.73m2 Moderately to severely decreased 30 - 44 mL/min/1.73m2 Severely decreased 15 - 29 mL/min/1.73m2 Kidney Failure < 15 mL/min/1.73m2 *Relative to young adult level Estimated glomerular filtration rate is determined by the 2020 CKD-EPI equation recommended by the National Kidney Foundation (A Unifying Approach to GFR Estimation: Recommendations of the NKF-ASK Task Force on Reassessing the Inclusion of Race in Diagnosing Kidney Disease, JASN 2020). The CKD-EPI equation should not be used for patients with unstable renal function and has not been validated in children and those over 70. Current interpretive data was last reviewed 2021. Blood 12/15/2024 12:5 4 PM LEARNING AND DEVELOPMENT DIRECTOR 12/15/2024 1:20 PM LEARNING AND DEVELOPMENT DIRECTOR us Jimena Cordoba MD LAB BLOOD ORDERABLES F inal Result [facility] [place] [address] * Basic metabolic panel (12/15/2024 12:54 PM LEARNING AND DEVELOPMENT DIRECTOR) Sodium 138 135 - 145 mmol/L Potassium, pl 4.1 3.3 - 4.9 mmol/L [facility] Chloride 99 97 - 110 mmol/L [facility] CO2 29 22 - 32 mmol/L [facility] Anion gap 11 2 - 15 mmol/L [facility] BUN 12 6 - 25 mg/dL [facility] Creatinine 0.73 0.60 - 1.10 mg/dL [facility] Glucose 108 70 - 199 mg/dL [facility] Comment: Interpretive Data Fasting glucose >/= 126 mg/dl is diagnostic for diabetes. Fasting is defined as no caloric intake for at least 8 hours. Fasting glucose between 100 mg/dl to 125 mg/dl is diagnostic of prediabetes. In a patient with classic symptoms of hyperglycemia or hyperglycemic crisis, a random glucose >/= 200 mg/dl is diagnostic for diabetes. In the absence of unequivocal hyperglycemia, results should be confirmed by repeat testing. The classification and Diagnosis of Diabetes Diabetes Care 2021; 46: S19-S40. Current interpretive data was last revised 2022. Calcium 10.2 8.5 - 10.3 mg/dL [facility] Blood 12/15/2024 12:5 4 PM LEARNING AND DEVELOPMENT DIRECTOR 12/15/2024 1:20 PM LEARNING AND DEVELOPMENT DIRECTOR Jimena Cordoba MD LAB BLOOD ORDERABLES F inal Result [facility] 1 [facility] [place] [address] * (ABNORMAL) Screening Mammogram Bilateral W Alphonse (07/22/2023 10:15 AM CDT) Anatomical Region Laterality Modality Breast Bilateral Mammography Narrative 07/31/2023 10:42 AM CDT Examination: Screening Mammogram Bilateral W Alphonse: 07/22/23 Clinical: Screening mammogram, encounter for. Prior Study Comparisons: None available at the time of interpretation. Findings: Screening Mammogram Bilateral W Alphonse Left 1) Focal Asymmetry: There is a focal asymmetry seen in the upper outer quadrant of the left breast. Right 2) Calcifications: There are amorphous calcifications seen in the right breast at 9 o'clock. 3) Asymmetry: There is an asymmetry seen in the upper region of the right breast in the posterior depth on the MLO view. The breasts are heterogeneously dense, which may obscure small masses. The patient will be notified of results by letter. Impression: BI-RADS ATLAS category (overall): 0 - Incomplete: Needs Additional Imaging Evaluation Overall Assessment: 0 - Incomplete: Needs Additional Imaging Evaluation Recommendation: - Additional Mammography views with possible ultrasound. Self Screening Mammogram IMG MAMMO PROCEDURES Fi nal Result from Last 3 Months or Most Recently Relevant to Health Maintenance Insurance EBONY JULESEW [employer] Advance Directives For more information, please contact: [phone] * Full Code (Latest Code Status on File) Date Activated Date Inactivated Comments 12/16/2024 8:49 PM 12/19/2024 5:16 PM * Full Code Date Activated Date Inactivated Comments 11/06/2023 11:38 PM 11/07/2023 2:07 PM Care Teams Dining Room Hostess Relationship Specialty Start Date End Date Jorge Nair MD PCP - General Family Medicine 03/17/23 Jimena Cordoba MD [address] DIV MEDICAL [facility]COLOGY, [facility] [address] [place] [address] Medical Oncologist/Insole Channeler Medical Oncology 10/21/23 Shyam Marshall MD [address] [facility] [address] [place] [address] Radiation Oncologist Radiation Oncology 11/27/23 Winnie Wolfe MD [address] [place] [address] Surgeon Surgical Oncology 11/27/23 Sirena Cardenas MD [address] [facility] [address] [place] [address] Referring Physician Plastic Surgery 11/27/23 Jimena Cordoba MD [address] DIV MEDICAL ONCOLOGY, [facility] [address] [place] [address] Medical Oncologist/Insole Channeler Medical Oncology 04/02/24
--- OUTSIDE RECORDS SUMMARY | 2025-03-08 11:10 | XMS_ITS | Referral Summary ---
Author Organization [facility] [address] [facility] lt Address [address] [place] [address] Care Team Providers Care Gm/Svp Global Publisher Business Name Role Phone Jorge Nair MD Primary Care Provider + [phone] Jimena Cordoba MD Unavailable [phone] Shyam Marshall MD Unavailable Winnie Wolfe MD Unavailable Sirena Cardenas MD Unavailable [phone] Jimena Cordoba MD Unavailable [phone] Encounters Date Type Department Care Team Description 03/03/2025 9:30 AM CDT Therapy [facility] Occupational Therapy [address] [facility] 6th [place] [address] [place] [phone] Chavez Lima OT S/P breast reconstruction (Primary Dx); Shoulder joint stiffness, bilateral; Abdominal weakness 02/22/2025 Telephone [facility] [address] [facility] Floor 6 [place] [address] Genie Weaver CPhT 02/21/2025 Documentation [facility] Oncology [address] [place] [phone] Annalisa Hameed RN 02/18/2025 1:00 PM CDT Lab [facility] [address] [place] [address] Malignant neoplasm of lower-outer quadrant of right breast of female, estrogen receptor positive (HCC) 02/18/2025 12:45 PM CDT Lab [facility] Oncology [address] [place] [phone] Malignant neoplasm of lower-outer quadrant of right breast of female, estrogen receptor positive (HCC) 02/18/2025 1:30 PM CDT Office Visit [facility] Oncology [address] [place] [phone] Jimena Cordoba MD Malignant neoplasm of lower-outer quadrant of right breast of female, estrogen receptor positive (HCC) (Primary Dx) 02/14/2025 Telephone [facility] Surgery [address] [place] [address] [address] [place] [phone] Sang Katz MD Return to work letter 02/11/2025 11:00 AM CDT Office Visit [facility] Psychiatry [facility] [address] [place] [address] Alfred Arnold MD Major depressive disorder in partial remission, unspecified whether recurrent (Primary Dx) 02/01/2025 2:45 PM CDT Office Visit [facility] Surgery [address] [place] [address] [address] [place] [phone] Sang Katz MD Status post breast reconstruction (Primary Dx) 01/25/2025 Telephone [facility] Radiation Oncology [address] [place] [address] [place] [address] Marixa Elizondo NP 01/14/2025 2:15 PM DATA OPERATIONS LEADER Office Visit [facility] Surgery [address] [place] [address] [place] [address] [place] [address] Nora Lee PA Malignant neoplasm of lower-outer quadrant of right breast of female, estrogen receptor positive (HCC) (Primary Dx) 01/14/2025 1:00 PM DATA OPERATIONS LEADER Therapy [facility] Occupational Therapy [address] [place] [address] 6th [place] [address] [place] [address] Rosamaria Mead OT S/P breast reconstruction (Primary Dx); Shoulder joint stiffness, bilateral; Abdominal weakness 01/12/2025 Telephone [facility] Radiation Oncology [address] [place] [address] Marixa Elizondo NP 01/12/2025 2:00 PM DATA OPERATIONS LEADER Office Visit [facility] Psychiatry [address] [facility] [address] [place] [phone] Alfred Arnold MD Major depressive disorder in partial remission, unspecified whether recurrent (Primary Dx) 01/11/2025 10:15 AM DATA OPERATIONS LEADER Office Visit [facility] Radiation Oncology [address] [place] [address] Marixa Elizondo NP Malignant neoplasm of lower-outer quadrant of right breast of female, estrogen receptor positive (HCC) [C50.511, Z17.0] 01/03/2025 2:00 PM DATA OPERATIONS LEADER Office Visit [facility] Surgery [address] [place] [address] [address] [place] [phone] Sang Katz MD Encounter to discuss breast reconstruction (Primary Dx) 12/27/2024 2:00 PM DATA OPERATIONS LEADER Office Visit [facility] Surgery [address] [place] [address] [address] [place] [phone] S/P breast reconstruction (Primary Dx) 12/24/2024 11:00 AM DATA OPERATIONS LEADER Office Visit [facility] Surgery [address] [place] [address] [address] [place] [phone] S/P breast reconstruction 12/16/2024 5:34 AM DATA OPERATIONS LEADER - 12/19/2024 1:10 PM DATA OPERATIONS LEADER Hospital Encounter [facility] 1 [place] [address] Sang Katz MD History of breast reconstruction Discharge Disposition: Discharge to home or self care 12/16/2024 7:30 AM DATA OPERATIONS LEADER - 12/16/2024 5:00 PM DATA OPERATIONS LEADER Surgery [facility] Operating [facility] [address] [place] [address] Sang Katz MD FREE FLAP DEEP INFERIOR EPIGASTRIC PERFORATORS 12/16/2024 7:28 AM DATA OPERATIONS LEADER Anesthesia Event [facility] Operating Room [facility] [address] [place] [address] Eldon Edwards MD Hall, Jill Marie, NP 12/15/2024 12:50 PM DATA OPERATIONS LEADER Lab [address] [address] Malignant neoplasm of lower-outer quadrant of right breast of female, estrogen receptor positive (HCC); Hypercalcemia from Last 3 Months Allergies Active Allergy Reactions Criticality Noted Date Comments Amoxicillin-Pot Clavulanate Other (See comments) Low 11/21/2023 Yeast infection Medications sour alvarez extract (Tart Alvarez Extract) 1,000 mg capsuleIndication s:supplement Take 1 [...] from 09/04/2023: cT2, cN1(f), cM0, G1, ER+, WA+, HER2: Not Assessed - Unsigned Pathologic stage from 10/29/2023:Stage IA(pT2, pN1(sn), cM0, G1, ER+, WA+, HER2- ) - Unsigned Pathologic: Unsigned Immunizations Immunization Administration Dates Next Due Influenza, Unspecified 08/27/2024 Social History Tobacco Use Types Packs/Day Years [...] on file Sexual Orientation Not on file Last Filed Vital Signs Vital Sign Reading [...] 02/18/2025 1:03 PM CDT Plan of Treatment Not on file Medical Devices Implanted Type Area Home Comfort Advisor Device Identifier Shelf Expiration Date Model / Serial / Lot Rti [employer] Inc Graft Tissue Tailored Dermis Large 1mm Thick Cortiva 10.2x21.1cm [id number] - [id number] - [id number] Implanted:Qty: 1 on 10/29/2023 by Sirena Cardenas MD at [facility] Breast Right: Breast Rti [employer] Inc 01/08/2028 [id number] / [id number] / [id number] Description:IMPLANT PAUSE PE RFORMED [employer] Allian [place] Microvascular Anastomoses 1.5mm Outside Sales Professional Anastomosis Sterile [id number] - [id number] Implanted:Qty: 1 on 12/16/2024 by Sang Katz MD at [facility] Clip Left: Breast OnCore Bi[employer]as [place] Allian 07/14/2028 [id number] / / [id number]- [id number] Synovis [place] Allian Outside Sales Professional Flow Microvascular Dual Ended [place] Outside Sales Professional 2.5mm [id number] - [id number] Implanted:Qty: 1 on 12/16/2024 by Sang Katz MD at [facility] Clip Left: Breast Synovis [place] Allian 03/29/2029 [id number] / / [id number]- [id number] [employer] Allian Outside Sales Professional Flow Microvascular Dual Ended [place] Outside Sales Professional 2.5mm [id number] - [id number] Implanted:Qty: 1 on 12/16/2024 by Sang Katz MD at [facility] Clip Left: Breast Synovis Alkeus Pharmaceuticalsian 03/29/2029 [id number] / / [id number]- [id number] Rti [employer] Inc Graft Tissue Tailored Dermis Large 1mm Thick Cortiva 10.2x21.1cm Fgh729 - [id number] - [id number] Implanted:Qty: 1 on 10/29/2023 by Sirena Cardenas MD at [facility] Other - see comments Left: Breast [employer] Inc 01/08/2028 [id number] / [id number] / [id number] Description:IMPLANT PAUSE PE RFORMED Tepha Inc Mesh Surg [place] 3d 21x7.5cm Soft Tissue Scaffold [place] Sh3d06 - [id number] Implanted:Qty: 1 on 10/29/2023 by Sirena Cardenas MD at [facility] Other - see comments Bilatera l: Breast TEPHA INC 10/02/2026 SH3D06 / / [id number] Description:IMPLANT PAUSE PE RFORMED [employer] Graft Tissue Tailored Dermis Large 1mm Thick Cortiva 10.2x21.1cm [id number] - [id number] - [id number] Implanted:Qty: 1 on 12/19/2023 by Sirena Cardenas MD at [facility] Other - see comments Right: Breast [employer] Inc 04/09/2028 [id number] / [id number] / [id number] Description:Implant pause pe rformed. Tepha Inc Mesh Surgical Synthetic [place] 3d Polypropylene Sh3d05 - Sn/A - [id number] Implanted:Qty: 1 on 12/19/2023 by Sirena Cardenas MD at [facility] Other - see comments Right: Breast TEPHA INC 11/28/2026 SH3D05 / N/A / [id number] Description:Implant pause pe rformed. Plate-12/11/2013 Implanted:2013 (Quantity not on file) Plate Bilatera l: Face Applied Immune Technologies Inc Marker Tissue 1 Year Visibility Butterfly Titanium Hydrogel Hydromark 15ga 4009-12-25-T4 - [id number] Implanted:Qty: 1 on 09/23/2023 at [facility] [employer] [id number] 4010-02- 15-T4 / / [id number] [employer] Marker Tissue Needle Delivery Spiral Capped Seed Radiopaque Penitentiary Stainless Steel Low Nickel Sentimag 11qia8an [id number] - [id number] Implanted:Qty: 1 on 10/22/2023 at [facility] Right: Axilla [employer] Inc [id number] / / Explanted Type Area Home Comfort Advisor Device Identifier Shelf Expiration Date Model / Serial / Lot Allergan Usa Inc Implant Mammary Natrelle Te Smooth 574y-Yw-90-T With Fourte 980d-Wg-30-T - [id number] - [id number] Implanted:Qty: 1 on 12/19/2023 by Sirena Cardenas MD at [facility] Explanted:Qty: 1 on 12/16/2024 at [facility] Breast Right: Breast [employer]er[employer] Inc [id number] 05/24/2028 133S-MX-1 4-T / [id number] / [id number] Description:Implant pause pe rformed. Allergan [employer]sa Inc Implant Mammary Natrelle Te Smooth 468q-Ax-68-T With Fourte 498l-Ff-88-T - [id number] - [id number] Implanted:Qty: 1 on 10/29/2023 by Sirena Cardenas MD at [facility] Explanted:Qty: 1 on 11/06/2023 by Deborah Corrigan MD at [facility] Other - see comments Right: Breast [employer]er[employer] Inc 03/21/2028 133S-MX-1 4-T / [id number] / Description:IMPLANT PAUSE PE RFORMED [employer] Powerport Airguard 8fr 1 Lumen Attachable Catheter Intermediate Latex Free [id number] - Sn/A - [id number] Implanted:Qty: 1 on 12/19/2023 by Winnie Wolfe MD at [facility] Explanted:Qty: 1 on 05/24/2024 by Winnie Wolfe MD at [facility] Other - see comments Left: Chest [employer] 05/09/2025 [id number] / N/A / [id number] Description:Catheter intact Aller[employer] Implant Mammary Natrelle Te Smooth 923u-Km-18-T With Fourte 452i-Ep-54-T - [id number] - [id number] Implanted:Qty: 1 on 10/29/2023 by Sirena Cardenas MD at [facility] Explanted:Qty: 1 on 12/16/2024 at [facility] Other - see comments Left: Breast [employer] 12/03/2027 133S-MX-1 4-T / [id number] / Description:IMPLANT PAUSE PE RFORMED Procedures Procedure Name Priority Date/Time Associated Diagnosis Comments EGFR Routine 02/18/2025 1:00 PM CDT Malignant neoplasm of lower-outer quadrant of right breast of female, estrogen receptor positive (HCC) COMPREHENSIVE METABOLIC PANEL Routine 02/18/2025 1:00 PM CDT Malignant neoplasm of lower-outer quadrant of right breast of female, estrogen receptor positive (HCC) EGFR Timed 12/16/2024 10:44 PM DATA OPERATIONS LEADER DIFFERENTIAL AUTO Timed 12/16/2024 10:44 PM DATA OPERATIONS LEADER CBC WITH AUTO DIFFERENTIAL Timed 12/16/2024 10:44 PM DATA OPERATIONS LEADER BASIC METABOLIC PANEL Timed 12/16/2024 10:44 PM DATA OPERATIONS LEADER SURGICAL PATHOLOGY Routine 12/16/2024 9: 07 AM DATA OPERATIONS LEADER History of breast reconstruction WA AN PROCEDURE PLACEHOLDER Routine 12/16/2024 8:30 AM DATA OPERATIONS LEADER WA AN PROCEDURE PLACEHOLDER Routine 12/16/2024 8:30 AM DATA OPERATIONS LEADER WA AN PROCEDURE PLACEHOLDER Routine 12/16/2024 8:12 AM DATA OPERATIONS LEADER WA AN ELECTIVE ENDOTRACHEAL AIRWAY Routine 12/16/2024 8:12 AM DATA OPERATIONS LEADER REMOVAL TISSUE RN IV THERAPY 12/16/2024 7:30 AM DATA OPERATIONS LEADER History of breast reconstruction Special Needs Need Leica and SPY CAPSULECTOMY BREAST 12/16/2024 7:30 AM DATA OPERATIONS LEADER History of breast reconstruction Special Needs Need Leica and SPY FREE FLAP DEEP INFERIOR EPIGASTRIC PERFORATORS 12/16/2024 7:30 AM DATA OPERATIONS LEADER History of breast reconstruction Special Needs Need Leica and SPY EGFR Routine 12/15/2024 12:54 PM DATA OPERATIONS LEADER Malignant neoplasm of lower-outer quadrant of right breast of female, estrogen receptor positive (HCC) Hypercalcemia BASIC METABOLIC PANEL Routine 12/15/2024 12:54 PM DATA OPERATIONS LEADER Malignant neoplasm of lower-outer quadrant of right [...] MD LAB BLOOD ORDERABLES F inal Result [address] Department [place] [address] * Comprehensive metabolic panel (02/18/2025 1:00 PM CDT) Sodium 138 135 - 145 mmol/L Potassium, pl 4.1 3.3 - 4.9 mmol/L [facility] Chloride 103 97 - 110 mmol/L [facility] CO2 22 22 - 32 mmol/L [facility] Anion gap 14 2 - 15 mmol/L [facility] BUN 13 6 - 25 mg/dL [facility] Creatinine 0.61 0.60 - 1.10 mg/dL [facility] Glucose 90 70 - 199 mg/dL [facility] Comment: Interpretive Data Fasting glucose >/= 126 [...] Bilirubin, total 0.4 0.1 - 1.2 mg/dL [facility] Protein, pl 7.3 6.5 - 8.5 g/dL [facility] Albumin 4.4 3.5 - 5.0 g/dL [facility] Alk phos 93 40 - 130 Units/L [facility] ALT 11 7 - 45 Units/L [facility] AST 16 10 - 45 Units/L [facility] Blood 02/18/2025 1:00 PM CDT 02/18/2025 1:26 PM CDT Narrative [facility] - 02/18/2025 1:37 PM CDT WITH ROV us Jimena Cordoba MD LAB BLOOD ORDERABLES F inal Result [facility] [address] [facility] Department [place] [address] * eGFR (12/16/2024 10:44 PM DATA OPERATIONS LEADER) eGFR >90 >=60 mL/min/1. 73 m2 Comment: [...] reviewed 2021. Blood 12/16/2024 10:4 4 PM DATA OPERATIONS LEADER 12/16/2024 11:41 PM DATA OPERATIONS LEADER us Sang Katz MD LAB BLOOD ORDERABLES Final Result [facility] [address] [facility] Department [place] [address] * (ABNORMAL) Differential, auto (12/16/2024 10:44 PM DATA OPERATIONS LEADER) Neutrophil abs 4.4 1.5 - 6.5 K/cumm Imm gran abs 0.0 0.0 - 0.1 K/cumm [facility] Lymphocyte abs 0.5(L) 0.8 - 3.3 K/cumm [facility] Monocyte abs 0.3 0.2 - 0.8 K/cumm [facility] Eosinophil abs 0.0 0.0 - 0.5 K/cumm [facility] Basophil abs 0.0 0.0 - 0.1 K/cumm [facility] Neutrophil pct 84.7 % [facility] Comment: Interpretive Data Percent cell count reference ranges are not reported, since discordance with absolute values may lead to misinterpretation of CBC data. Current Interpretive Data was last revised on 2018. Imm gran pct 0.2 % [facility] Comment: Interpretive Data Percent cell count reference ranges are not reported, since discordance with absolute values may lead to misinterpretation of CBC data. Current Interpretive Data was last revised on 2018. Lymphocyte pct 8.7 % [facility] Comment: Interpretive Data Percent cell count reference ranges are not reported, since discordance with absolute values may lead to misinterpretation of CBC data. Current Interpretive Data was last revised on 2018. Monocyte pct 6.2 % [facility] Comment: Interpretive Data Percent cell count reference ranges are not reported, since discordance with absolute values may lead to misinterpretation of CBC data. Current Interpretive Data was last revised on 2018. Eosinophil pct 0.0 % [facility] Comment: Interpretive Data Percent cell count reference ranges are not reported, since discordance with absolute values may lead to misinterpretation of CBC data. Current Interpretive Data was last revised on 2018. Basophil pct 0.2 % [facility] Comment: Interpretive Data Percent cell count reference ranges are not reported, since discordance with absolute values may lead to misinterpretation of CBC data. Current Interpretive Data was last revised on 2018. Blood 12/16/2024 10:4 4 PM DATA OPERATIONS LEADER 12/16/2024 11:41 PM DATA OPERATIONS LEADER us Sang Katz MD LAB BLOOD ORDERABLES Final Result [facility] [address] [facility] Department [place] [address] * (ABNORMAL) CBC with auto differential (12/16/2024 10:44 PM DATA OPERATIONS LEADER) WBC 5.2 3.8 - 9.9 K/cumm Hgb 8.5(L) 11.9 - 15.5 g/dL [facility] Hct 25.4(L) 35.6 - 45.5 % [facility] Plt 161 150 - 400 K/cumm [facility] MPV 10.4 9.1 - 12.3 fL [facility] RBC 2.81(L) 3.90 - 5.20 M/cumm [facility] MCV 90.4 81.3 - 96.4 fL [facility] MCH 30.2 27.1 - 33.3 pg [facility] MCHC 33.5 32.3 - 35.7 g/dL [facility] RDW CV 12.4 11.1 - 14.9 % [facility] RDW SD 41.0 35.7 - 48.1 fL [facility] NRBC abs 0.00 0.00 - 0.01 K/cumm [facility] Blood 12/16/2024 10:4 4 PM DATA OPERATIONS LEADER 12/16/2024 11:41 PM DATA OPERATIONS LEADER us Sang Katz MD LAB BLOOD ORDERABLES Final Result [facility] Miguelangel [facility] Department [place] [address] * (ABNORMAL) Basic metabolic panel (12/16/2024 10:44 PM DATA OPERATIONS LEADER) Sodium 135 135 - 145 mmol/L Potassium, pl 4.1 3.3 - 4.9 mmol/L [facility] Chloride 106 97 - 110 mmol/L [facility] CO2 14(L) 22 - 32 mmol/L [facility] Anion gap 15 2 - 15 mmol/L [facility] BUN 4(L) 6 - 25 mg/dL [facility] Creatinine 0.34(L) 0.60 - 1.10 mg/dL [facility] Glucose 64(L) 70 - 199 mg/dL [facility] Comment: Interpretive Data Fasting glucose >/= [...] classification and Diagnosis of Diabetes Diabetes Care 202; 46: S19-S40. Current interpretive data was last revised 2022. Calcium 6.7(L) 8.5 - 10.3 mg/dL [facility] Blood 12/16/2024 10:4 4 PM DATA OPERATIONS LEADER 12/16/2024 11:41 PM DATA OPERATIONS LEADER us Sang Katz MD LAB BLOOD ORDERABLES Final Result [facility] Miguelangel [facility] Department [place] [address] * Surgical pathology (12/16/2024 9:07 AM DATA OPERATIONS LEADER) Tissue specimen (specimen) (Breast, capsular tissue) 12/16/2024 9:07 AM DATA OPERATIONS LEADER Tissue specimen (specimen) (Breast, capsular tissue) 12/16/2024 9:33 AM DATA OPERATIONS LEADER Tissue specimen (specimen) (Skin, excision) 12/16/2024 5:33 PM DATA OPERATIONS LEADER Tissue specimen (specimen) (Skin, excision) 12/16/2024 5:43 PM DATA OPERATIONS LEADER Narrative PATHOLOGY [facility] - 12/21/2024 11:08 AM DATA OPERATIONS LEADER EPIC results best viewed via link to PDF [facility] [place] [address] Note to Patients: This report may contain [...] Gender: F : 1980 (Age: 44) Address: [address] [place], [place] [id number] Hospital #: [id number] Taken:12/16/2024 Received:12/16/2024 Reported: 12/21/2024 Patient Type: [facility] Inpatient Service: Plastic Surgery Location: [place] [address] Physician(s): Katlyn Stubbs M.D. Diagnosis: A. Breast, [...] - No evidence of atypia or malignancy [facility]/12/20/2024 19:35 By this signature, I attest that [...] wong surface. There are no focal lesions. Speech Language Assistant sections are submitted in cassette A1. Jar 1 B. Labeled left breast capsule are two irregular and frayed sheets of rubbery purple wong tissue grossly consistent with a fragmented breast capsule (9.5 x 5.2 x 1.2 cm in aggregate) each with one smooth purple pink surface and an opposing roughened purple wong surface. There are no focal lesions. Speech Language Assistant sections are submitted in cassette B1. Jar [...] Serial sections show no focal lesions. A product support representative section is submitted in cassette C1. [...] cm). Serial sections show no focal lesions. Speech Language Assistant sections are submitted in cassette D1. Jar [...] Surgical Pathology and Flow Cytometry Departments at [facility] as part of an ongoing quality tester program and in compliance with federally mandated [...] Surgical Pathology and Flow Cytometry Departments of [facility]. It has not been cleared or approved by the U. S. Food and Drug Administration. IMAGES AND SCANNED DOCUMENTS, IF INCLUDED, ONLY VIEWABLE IN PDF VERSION OF REPORT us Sang Katz MD LAB PATHOLOGY ORDERA BLES Final Result PATHOLOGY [facility] 3rd Floor [place], [place] [phone] * [place] AN PROCEDURE PLACEHOLDER (12/16/2024 8:30 AM DATA OPERATIONS LEADER) Macario Carlisle CRNA - 12/16/2024 8:30 AM DATA OPERATIONS LEADER Macario Snyder CRNA 12/16/2024 8:31 AM Peripheral IV Catheter Preprocedure prep: Prep solution: chlorhexadine PPE: gloves and provider hat/mask PIV line: Laterality: left Site: wrist Catheter size: 18 g Technique: direct visualization Procedure details: good blood return and occlusive dressing applied Number of attempts: 1 Assessment: Events: patient tolerated procedure well with no complications us Eldon Edwards MD ANESTHESIA ORDERABLES Final Res ult * WA AN PROCEDURE PLACEHOLDER (12/16/2024 8:30 AM DATA OPERATIONS LEADER) Macario Carlisle CRNA - 12/16/2024 8:30 AM DATA OPERATIONS LEADER Macario Snyder CRNA 12/16/2024 8:30 AM Peripheral [...] MD ANESTHESIA ORDERABLES Final Res ult * WA AN ELECTIVE ENDOTRACHEAL AIRWAY, [place] AN PROCEDURE PLACEHOLDER (12/16/2024 8:12 AM DATA OPERATIONS LEADER) Macario Carlisle CRNA - 12/16/2024 8:12 AM DATA OPERATIONS LEADER Macario Snyder CRNA 12/16/2024 8:12 AM Airway Patient location: OR [...] Res ult * eGFR (12/15/2024 12:54 PM DATA OPERATIONS LEADER) eGFR >90 >=60 mL/min/1. 73 m2 Comment: [...] reviewed 2021. Blood 12/15/2024 12:5 4 PM DATA OPERATIONS LEADER 12/15/2024 1:20 PM DATA OPERATIONS LEADER us Jimena Cordoba MD LAB BLOOD ORDERABLES F inal Result [facility] 1 [facility] Department [place] [address] * Basic metabolic panel (12/15/2024 12:54 PM DATA OPERATIONS LEADER) Sodium 138 135 - 145 mmol/L Potassium, pl 4.1 3.3 - 4.9 mmol/L [facility] Chloride 99 97 - 110 mmol/L [facility] CO2 29 22 - 32 mmol/L [facility] ([facility]) Anion gap 11 2 - 15 mmol/L [facility] BUN 12 6 - 25 mg/dL [facility] Creatinine 0.73 0.60 - 1.10 mg/dL [facility] Glucose 108 70 - 199 mg/dL [facility] Comment: Interpretive Data [...] [facility] ([facility]) Blood 12/15/2024 12:5 4 PM DATA OPERATIONS LEADER 12/15/2024 1:20 PM DATA OPERATIONS LEADER Jimena Cordoba MD LAB BLOOD ORDERABLES F inal Result [facility] ([facility]) 1 [facility] Department [place] [address] * (ABNORMAL) Screening Mammogram Bilateral W Alphonse [...] - Additional Mammography views with possible ultrasound. us Self Screening Mammogram IMG MAMMO PROCEDURES Fi nal Result from Last 3 Months or Most Recently Relevant to Health Maintenance Insurance [facility] Advance Directives For more information, please contact: [phone] * Full Code (Latest Code Status on File) Date Activated Date Inactivated Comments 12/16/2024 8:49 PM 12/19/2024 5:16 PM * Full Code Date Activated Date Inactivated Comments 11/06/2023 11:38 PM 11/07/2023 2:07 PM Care Teams [employer] Business Relationship Specialty Start Date End Date Jorge Nair MD PCP - General Family Medicine 03/17/23 Jimena Cordoba MD [address] DIV IM MEDICAL ONCOLOGY, [facility] [address] [place] [address] Medical Oncologist/Electric Switch Tester Medical Oncology 10/21/23 Shyam Marshall MD [address] [facility] [address] [place] [address] Radiation Oncologist Radiation Oncology 11/27/23 Winnie Wolfe MD [address] [place] [address] Surgeon Surgical Oncology 11/27/23 Sirena Cardenas MD [address] [facility] [address] [place] [address] Referring Physician Plastic Surgery 11/27/23 Jimena Cordoba MD [address] DIV IM MEDICAL ONCOLOGY, [facility] [address] [place] [address] Medical Oncologist/Electric Switch Tester Medical Oncology 04/02/24
== END 2025-03-08 10:03 | disposition home or self-care (01) ==
PROVIDERS: PCP Family Medicine; Visit Provider Nurse Practitioner Family
DX: R20.0 Anesthesia of skin (principal); R20.2 Paresthesia of skin; G56.03 Carpal tunnel syndrome, bilateral upper limbs
CPT/HCPCS: 95886; 95911